=== PATIENT | male | born 1950 | race Caucasian/White ===

== ENCOUNTER 2025-03-29 07:42 | Emergency (ER) | payer MEDICARE, SELFPAY ==
[2025-03-29] VITALS (7 sets, daily range): BP systolic 112–141; BP diastolic 62–74; PULSE 77–91; RESP 17–18; TEMP 36.6–36.9; O2SAT 94; BMI 24.2; BMI 24.8
--- NOTE | ~2025-03-29 | CT_ITS ---
EXAMINATION: CT HEAD WITHOUT CONTRAST CLINICAL INFORMATION: Dizziness, gait changes. COMPARISON: None available. TECHNIQUE: Contiguous axial imaging was performed from the skull base to vertex without intravenous administration of contrast. This CT examination was performed using dose optimization techniques as appropriate, variously including the following: *Automated exposure control *Adjustment of mA and/or kV according to patient size (this includes techniques or standardized protocols for targeted exams where dose is matched to indication/reason for exam; i.e. extremities or head) *Use of iterative reconstruction technique FINDINGS: There is no evidence of intracranial hemorrhage or extra-axial fluid collection. There is no mass effect, or edema. No CT evidence of acute territorial infarct. Ventricles, sulci, and cisterns are normal in size and configuration for patient age. No hydrocephalus. No midline shift. Negative hyperdense MCA sign. Negative insular ribbon sign. Patchy periventricular and deep white matter hypoattenuation is consistent with mild small vessel ischemic changes. 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 Normal pituitary. Mild atheromatous calcification of the bilateral carotid siphons and V4 segments vertebral arteries bilaterally. Globes and orbital contents image normally. No extracranial soft tissue abnormalities. The paranasal sinuses, mastoid air cells, and tympanic cavities are normally aerated. No suspicious bony abnormalities. There are no acute fractures evident. CT/CT head/brain wo IV con IMPRESSION: No acute intracranial abnormality. Electronically signed by: Ishan Young MD 03/29/2025 09:25 AM EDT
--- NOTE | 2025-03-29 08:06 | ECG_ITS ---
Test Reason : dizziness Blood Pressure : */* mmHG Vent. Rate : 81 BPM Atrial Rate : 81 BPM P-R Int : 168 ms QRS Dur : 80 ms QT Int : 380 ms P-R-T Axes : 71 -6 60 degrees QTcB Int : 441 ms Normal sinus rhythm Normal ECG No previous ECGs available Referred By: Reba Aguiar Electronically Signed By: JOSE REYES MD
--- OUTSIDE RECORDS SUMMARY | 2025-03-29 08:15 | XMS_ITS ---
Author Organization [facility] Address [address] [place] [address] Care Team Providers Care Computer Art Instructor Name Role Phone Zenaida TA, Jesús Huerta Primary Care Provider Unav ailable Joellen, Semaj Unavailable [phone] Allergies No Known Allergies REASON FOR VISIT At Risk Footcare, Painful Nail(s) aggrevated by shoes and causing difficulty standing/walking., Skin problem(s) Medications Medication SIG (Take, Route, Frequency, Duration) Notes Start Date End Date Status Simvastatin Active Baby Aspirin Active Lisinopril 10 MG Oral for 90 A ctive PIB-QVUI-Nzvp-Ca Gluc Not-Taking Metoprolol Succinate ER 100 MG Oral for 90 Active Ammonium Lactate 12 % 1 application Exte rnally to affected areas of skin to feet except for between the toes Twice a day for 30 days Active Social History Tobacco Use: Social History Observation Description Date Details (start date - stop date) Never Smoker NA - NA Tobacco Use/Smoking Question Answer Notes Are you a: nonsmoker Alcohol Screen Question Answer Notes Did you have a drink contain ing alcohol in the past year? Yes How often did you have a dri nk containing alcohol in the past year? 4 or more times a week (4 points) How many drinks did you have on a typical day when you were drinking in the past year? 1 or 2 drinks (0 point) Points 4 Interpretation Positive Tobacco use other than smoking: Question Answer Notes Are you an other tobacco user? No Problems Problem Type SNOMED Code ICD Code Onset Dates Problem Status W/U Status Risk Notes Problem Atherosclerosis of upper sioux arteries of the extremities (097211270875718) Atherosclerosis of upper sioux artery of both lower extremities, with unspecified presence of clinical manifestation (I70.203) Active confirmed Vital Signs Height 5 ft 8 in in 09/06/2024 Weight 164 lbs 09/06/2024 BMI 24.93 kg/m2 09/06/2024 Blood pressure systolic 120 mm Hg 09/06/20 Blood pressure diastolic 80 mm Hg 024 Procedures Procedure Date Ordered Date Performed Result Body Sit e 22303-PGAYJIX NAIL, 6 OR MORE 09/06/2024 N/A 29101-IHKO SKIN LESIONS, OVER 4 09/06/2024 N/A Encounters Encounter Location Date Provider Diagnosis [facility] [place] [address] [place] [address] 09/06/2024 Semaj Cuenca Atherosclerosis of upper sioux artery of both lower extremities, with unspecified presence of clinical manifestation I70.203 ; Tinea unguium B35.1 ; Pain in right toe(s) M79.674 ; Pain in left toe(s) M79.675 and Xerosis of skin L85.3 Assessments Encounter Date Diagnosis (ICD Code) Assessment Notes Treatment Notes Treatment Clinical Notes Section Notes 09/06/2024 Atherosclerosis of upper sioux artery of both lower extremities, with unspecified presence of clinical manifestation (ICD-10 - I70.203) 09/06/2024 Tinea unguium (ICD-10 - B35.1) 09/06/2024 Pain in right toe(s) (ICD-10 - M79.674) 09/06/2024 Pain in left toe(s) (ICD-10 - M79.675) 09/06/2024 Xerosis of skin (ICD-10 - L85.3) Plan Of Treatment Medication Medication Name Sig Start Date Stop Date Notes Ammonium Lactate 12 % 1 application Exte rnally to affected areas of skin to feet except for between the toes Twice a day for 30 days Pending Test Test Name Order Date 41863-YTKUUAZ NAIL, 6 OR MORE 09/06/2024 77920-NDCB SKIN LESIONS, OVER 4 09/06/20 24 Next Appt Details Follow Up: prn, Reason: Provider Name:Semaj Cuenca , 06/22/2025 09:00:00 AM, [address] [facility], [address], [place], [address], Procedure Notes * Category Sub-Category Detail Notes Debride Nail 6-10 Nail debridement Performance o f this nail treatment by a nonprofessional would put this patients foot and overall health at risk. Therefore, nail debridement was performed extensively to reduce/remove overall nail length, girth, thickness, subungual debris, and necrotic tissue, by manual and/or electrical means through the use of a nail nipper and/or dremel-type grinder set up operator gear tool, to a more viable healthy nail plate or bed tissue 6-10. Silver nitrate used for any petechial bleeding as necessary. Definitive antifungal treatment options have been reviewed and discussed with the patient. The patient chooses, no pharmaceutical tx - 98645 Keratoma Treatment Parring or Cutting o f Benign Hyperkeratotic Lesion(s) (-57) More than 4 Lesions - The Benign hyperkeratotic lesions, as described above were pared, and/or cut utilizing a sterile 15 blade, tissue nippers, and/or dremel - 69322 , Q8 Progress Notes * Vinod LINDSEYDOB:[birth year] (74 yo M)Acc No.[id number]:09/06/2024 Progress Note Patient:?ILIANAVinod SHINE Provider:?Semaj Cuenca DPM :1950???Age:74 Y???Sex:Male Tuan e:09/06/2024 Address:[address] [place] [address] Pcp:Jesús Estevez MD Subjective: * Chief Complaints: * ???At Risk FootcarePainful N ail(s) aggrevated by shoes and causing difficulty standing/walking.Skin problem(s) * HPI: ???At Risk footcare:?Pt States Last PCP Visit:?Date?05/21/2024 ???Skin problems:?Nature:?dryness , scaling.?Location:?B/L .?Duration:?several days.?Course:?worse.? * ROS:?General/Constitutional:?Nausea?denies.?Vomiting?denies.?Hunger Thirst?denies.?Loss appetite?denies.?Chills?denies.?Fatigue?denies.?Fever?denies.?Night Sweats?denies.?Unexplained weight loss?denies.?Unexplained weight gain?denies.?HEENTM:?Dentures?denies.?Dizziness?denies.?Glasses/contacts?admits.?Retinopathy?de nies.?Blurred/double vision?denies.?TMJ?denies.?Discharge/drainage?denies.?Implants?denies.?Sore throat?denies.?Dental implants?denies.?Hard of hearing ?denies.?Difficulty chewing/swallowing/speaking?denies.?Nose bleeds?denies.?Sore mouth?denies.?Respiratory:?On Oxygen?denies.?Pneumonia/pleurisy?denies.?Bronchitis?denies.?Emphysema?denies.?C oughing?denies.?Cough blood?denies.?Shortness of breath?denies.?Wheezing?denies.?Cardiovascular:?Pacemaker?denies.?MVP?denies.?WPW?denies.?CHF?denies.?Heart attack?denies.?Septal defect?denies.?Rapid beat?admits.?Chest pain ?denies.?Atrial Fib.?denies.?Murmur/Palpitations?denies.?Gastrointestinal:?Hemorrhoids?denies.?Stomach/Abdominal pain?denies.?Dark blood stool?denies.?Irritable bowel ?denies.?Constipation?denies.?Diarrhea?denies.?Hematology:?Swelling?denies.?Clots?denies.?Varicose Veins?admits.?Bruising?admits, on aspirin.?Bleeding problem?admits, on anticoagulants.?Genitourinary:?Blood urine?denies.?Frequent/Painfu/urination/bladder control?denies.?Kidney stones?denies.?Infection (UTI)?denies.?Nephropathy?denies.?sex trans dis (STD)?denies.?Prostate?denies.?Musculoskeletal:?Hammertoes?admits.?Bunions?denies.?Back Pain?denies.?Muscle Cramps/ Resting?denies.?Muscle cramps / walking?denies.?Generalized aches and pains?denies.?Weakness?denies.?Integ.:?Esquivel?denies.?Scars?denies.?Corns/calluses?admits.?Ingrown nails?admits.?Painful nails?admits.?Open Sores?denies.?Rashes?denies.?Neurologic:?Difficulty sleeping?denies.?Brain disorder?denies.?Numbness?denies.?Balance trouble?denies.?Confusion?denies.?Fainting/blackouts?denies.?Tingling?denies.?Tr emors?denies.?Rapid heart rate. * Medical History:? * Surgical History:?TURP (mills surethral resection of the prostate) * Hospitalization/Major Diagno stic Procedure:?Denies Past Hospitalization * Family History:?Mother: dece ased, diagnosed with Diabetic - NIDDM, Unspecified essential hypertension.? * Social History:?Tobacco Use:?Tobacco Use/Smoking?Are you a:?nonsmoker ?Tobacco use other than smoking?Are you an other tobacco user??No ???Drugs/Alcohol:?Drugs?Have you used drugs other than those for medical reasons in the past 12 months??No ?Alcohol Screen?Did you have a drink containing alcohol in the past year??Yes ?How often did you have a drink containing alcohol in the past year??4 or more times a week (4 points) ?How many drinks did you have on a typical day when you were drinking in the past year??1 or 2 drinks (0 point) ?Points?4 ?Interpretation?Positive ???Miscellaneous:?Caffeine: yes, 2-3 cups per day. ?Children: no. ?Exercise: yes, walking. ?Marital status: . ?Occupation: Retired. * Medications:?TakingBaby Aspi rin Simvastatin Lisinopril 10 MG Tablet Oral Metoprolol Succinate ER 100 MG Tablet Extended Release 24 Hour Oral Taking Baby Aspirin Taking Simvastatin Taking Lisinopril 10 MG Tablet Oral Taking Metoprolol Succinate ER 100 MG Tablet Extended Release 24 Hour Oral Not-Taking/PAISCI-UHIY-Iaee-Ca Gluc Medication List reviewed and reconciled with the patientNot-Taking/PRN LJJ-IHGT-Vsdo-Ca Gluc Medication List reviewed and reconciled with the patient * Allergies:?N.K.D.A.yes[Aller gies Verified] Objective: * Vitals:?Ht: 5 ft 8 in, Wt:16 4, BMI:24.93, Shoe size:8.5, BP:120/80mm Hg, BS:not taken. * Examination: ???Vascular: ?DP PULSES (B):? 1/4, B/L.?PT PULSES (B):? 0/4, B/L.?CAPILLARY FILL TIME:? delayed, all digits, B/L.?TROPHIC CONDITION-TEXTURE/ELASTICITY/TURGOR/HAIR GROWTH (B):? decreased, with sparse to absent hair growth, B/L.?TEMPERTURE GRADIENT (C):? decreased, cool to cool, proximal to distal, B/L.?PIGMENTATION:? rubrous, B/L.?EDEMA (C):?absent, B/L.?CLAUDICATION (C):?denies, B/L.?REST PAIN:?denies, B/L.?Nails: ?NAILS are:?Elongated, overgrown, dystrophic, lytic, greater than 3mm thick, discolored and friable with crumbly malodorous subungual debris, with pain on palpation, TA, T2, T3, T4, T5, T6, T7, T9.?Dermatologic: ?SKIN FINDINGS:? Skin exam reveals Keratotic lesion(s) located at, Medial plantar, IPJ, TA, Medial plantar, IPJ, T5, SUB MTH (s), 1, B/L , SUB MTH (s), 2, B/L , SUB MTH (s), 5,B/L, Heel(s), B/L , Skin shows sign(s) of, dryness, scaling, in a stocking fashion, no fissure(s) present, B/L.? Assessment: * Assessment: 1.?Tinea unguium - B35.1???2 .?Atherosclerosis of upper sioux artery of both lower extremities, with unspecified presence of clinical manifestation - I70.203???3.?Pain in right toe(s) - M79.674???4.?Pain in left toe(s) - M79.675?? 5.?Xerosis of skin - L85.3???Specify :Acute problem, Uncomplicated (3),Rx Management (4)??? Plan: * Treatment: 2.?Atherosclerosis of upper sioux artery of both lower extremities, with unspecified presence of clinical manifestation?Procedure: 50334-RELW SKIN LESIONS, OVER 4 3.?Xerosis of skin? Start Ammonium Lactate Cream, 12 %, 1 application, Externally to affected areas of skin to feet except for between the toes, Twice a day, 30 days, 140, Refills 2.?? * Procedures:?Debride Nail 6-10:?Nail debridement?Performance of this nail treatment by a nonprofessional would put this patients foot and overall health at risk. Therefore, nail debridement was performed extensively to reduce/remove overall nail length, girth, thickness, subungual debris, and necrotic tissue, by manual and/or electrical means through the use of a nail nipper and/or dremel-type grinder set up operator gear tool, to a more viable healthy nail plate or bed tissue 6-10. Silver nitrate used for any petechial bleeding as necessary. Definitive antifungal treatment options have been reviewed and discussed with the patient. The patient chooses, no pharmaceutical tx - 78052.?Keratoma Treatment:?Parring or Cutting of Benign Hyperkeratotic Lesion(s)?(-57) More than 4 Lesions - The Benign hyperkeratotic lesions, as described above were pared, and/or cut utilizing a sterile 15 blade, tissue nippers, and/or dremel - 03985 , Q8.? * Procedure Codes:?59122 DEBRI DE NAIL, 6 OR MORE, Modifiers: XS 77709 TRIM SKIN LESIONS, OVER 4, Modifiers: XS , Q8 * Preventive Medicine:? ??Counseling:?Discussion:?-13: Office or other outpatient visit for the evaluation and management of an established patient, which required a medically appropriate history and/or examination and LOW level of DECISION MAKING for: 1 STABLE ACUTE UNCOMPLICATED PROBLEM, 2 OR MORE MINOR PROBLEMS, OR 1 STABLE CHRONIC PROBLEM, THAT POSE(S) A LOW RISK FOR MORBIDITY/MORTALITY. The visit on the day of the encounter encompassed interpreting the data and educating the patient as to the nature of their condition, treatment options available according to their individual PMH, meds, allergies, and overall health/living conditions, as well as any potential risks or complications that may occur from a failure to adhere to, and participate in, the recommended course of therapy. The discussion included a complete verbal, and/or written explanation of the examination results, any x-rays taken, the proposed diagnosis, and outline of the treatment plan. A schedule for future care needs was also explained. The patient verbalized an understanding of the instructions at this time and agreed to be an active participant in their treatment. If the patient should think of any questions or concerns after the visit, I have encouraged the patient to call the office.?Xerosis:?The patient was counseled on the diagnosis, potential etiologies, and treatment options for their skin condition. We discussed the risks and benefits of each option from performing no treatment, to utilizing OTC topical skin creams/ointments, to utilizing prescription topical creams/ointments, to utilizing customized compounded topical medications and use of nocturnal occlusion with any/all previously detailed therapies. We discussed the advantages and disadvantages of each possible treatment and importance for adherence to all the recommended therapies for optimum success and avoid potential complications such as open sore/infection/possible hospitalization. We discussed the potential effectiveness of each topical preparation as well as each ones possible side effects and/or patient medication interactions. Patient questions re: use, dosage, successful outcomes, and application consistency were reviewed and the patient verbalized that all answers were clearly understood. The patient has decided to apply Rx skin creams to their feet save the interspaces while paying special attention to the heels. Such was sent to their pharmacy at the time of visit.? ??Screening/Special Tests:?Fall Risk?Screening:?No falls in the past year ?FALLS: Screening for Future Fall Risk?Have you had any falls with injury in the past year??No * Follow Up:?prn * Images: * Sign off status: Completed true * Provider:?Semaj Cuenca DPM Date:?2023 Generated for Julienne soto/Veronica/Sidney on:?03/29/2025 08:15 AM EDT History and Physical Notes * HPI (History of Present Illness) Category Sub-Category Detail Notes Category Not es Skin problems Nature: dryness , scaling Location: B/L Duration: several days Course: worse At Risk footcare Pt States Last PCP Visit: Date: 4 Examination Category Sub-Category Detail Notes Category Not es Dermatologic SKIN FINDINGS: Skin exam reveal s Keratotic lesion(s) located at, Medial plantar, IPJ, TA, Medial plantar, IPJ, T5, SUB MTH (s), 1, B/L , SUB MTH (s), 2, B/L , SUB MTH (s), 5,B/L, Heel(s), B/L , Skin shows sign(s) of, dryness, scaling, in a stocking fashion, no fissure(s) present, B/L Vascular DP PULSES (B): 1/4, B/L PT PULSES (B): 0/4, B/L CAPILLARY FILL TIME: delayed, all digits , B/L TEMPERTURE GRADIENT (C): decreased, cool to cool, proximal to distal, B/L TROPHIC CONDITION-TEXTURE/ELASTICITY/TURGOR/HAIR GROWTH (B): decreased, with sparse to absent hair gr owth, B/L EDEMA (C): absent, B/L CLAUDICATION (C): denies, B/L REST PAIN: denies, B/L PIGMENTATION: rubrous, B/L Nails NAILS are: Elongated, overg rown, dystrophic, lytic, greater than 3mm thick, discolored and friable with crumbly malodorous subungual debris, with pain on palpation, TA, T2, T3, T4, T5, T6, T7, T9
--- OUTSIDE RECORDS SUMMARY | 2025-03-29 08:15 | XMS_ITS | Clinical Summary ---
Author Organization [address] Address [address] [place] [phone] Phone Care Team Providers Care Events And Promotions Assistant Name Role Phone Jesús Estevez MD Primary Care Provider [phone] Allergies No known active allergies Medications aspirin 81 mg EC tablet Take 1 tablet (81 mg total) by mouth 1 (one) time each day. OTC Active metoprolol succinate (TOPROL-XL) 50 mg 24 hr tabletIndicatio ns:Routine general medical examination at a health care facility,Hypote nsion due to drugs,Fall, initial encounter Take 1 tablet (50 mg total) by mouth 1 (one) time each day. Do not crush or chew. 30 each 5 03/21/20 25 025 Active simvastatin (ZOCOR) 20 mg tabletIndicatio ns:Routine general medical examination at a health care facility,Hypote nsion due to drugs Take 1 tablet (20 mg total) by mouth at bedtime. at bedtime 90 tablet 1 03/21/20 25 Active ammonium lactate (AMLACTIN) 12 % cream if needed for dry skin. 025 Discontinued(Th erapy completed) simvastatin (ZOCOR) 20 mg tablet TAKE ONE TABLET BY MOUTH DAILY AT BEDTIME 90 tablet 1 10/18/20 24 025 Discontinued(Re order) metoprolol succinate (TOPROL-XL) 100 mg 24 hr tablet TAKE ONE TABLET BY MOUTH EVERY DAY 90 tablet 1 10/18/20 24 025 Discontinued lisinopriL (PRINIVIL,ZESTR IL) 10 mg tablet Take 1 tablet (10 mg total) by mouth 1 (one) time each day. 90 tablet 02/15/20 25 025 Discontinued Active Problems Problem Noted Date Diagnosed Date Mixed hyperlipidemia 12/27/2021 Neurogenic bladder 11/03/2019 Prediabetes 02/01/2019 Assessment & Plan (03/21/2025 1:39 PM EDT): Orders: Hemoglobin A1c; Future Basic metabolic panel; Future Atrial fibrillation ([facility] V24, [facility] V28) 0 07/03/2018 Overview (08/24/2024): folows with Dr. Martel Benign prostatic hyperplasia 11/21/2017 Other pulmonary embolism wit hout acute cor pulmonale ([facility] V24, [facility] V28) 10/13/2017 Normocytic anemia 07/30/2017 Ventral hernia 08/26/2008 Macular degeneration (senile) of retina 08/11/20 06 Overview (08/24/2024): Followed by Dr. Nick Funes Obi update Essential hypertension, benign 01/15/2006 Pure hypercholesterolemia 01/15/2006 Encounters Date Type Department Care Team Description 03/28/2025 Telephone Adult Medicine [address] [phone] Jesús Estevez MD MyChart Message 03/28/2025 Nurse Triage Adult Medicine [address] [phone] Nay Pruitt NP 03/21/2025 10:30 AM EDT Office Visit Adult Medicine [address] [phone] Nay Pruitt NP Routine general medical examination at a health care facility (Primary Dx); Hypotension due to drugs; Fall, initial encounter; Hyperglycemia; Prediabetes; Encounter for screening for cardiovascular disorders; Encounter for screening for malignant neoplasm of prostate 01/10/2025 2:00 PM EST Office Visit [facility] [address] [phone] Giovanny Leigh MD Mixed hyperlipidemia (Primary Dx); Other pulmonary embolism without acute cor pulmonale, unspecified chronicity ([facility] V24, [facility] V28); Atrial fibrillation, unspecified type ([facility] V24, [facility] V28) from Last 3 Months Immunizations Name Administration Dates Next Due H1N1 Inj Preservative Free 12/05/2009 Influenza trivalent, 0.5mL ( Fluzone High-dose) 65yo and older 08/16/2021,09/04/2020,08/04/2019,09/09,07/22/2017,08/03/2015 Influenza trivalent, with pr eservative (Fluzone; Afluria) 6mo and older 10/20/2014,10/19/2013,10/12/2012,09/13,09/10/2010,08/26/2008,08/29/2007 ,10/12/2006 Influenza, Unspecified 09/18/2016 Pneumococcal conjugate 13 va lent (Prevnar 13, PCV13) 2mo and older 09/17/2017 Pneumococcal conjugate 20 va lent (Prevnar 20, PCV 20) 2mo and older 12/26/2022 Pneumococcal polysaccharide 23 valent (Pneumovax 23) 2yo and older 09/10/2010 Td Tetanus diptheria (Tdvax) 7yo and older 08/11/2006 Tdap Tetanus diptheria acell ular pertussis (Boostrix; Adacel) 7yo and older 12/26/2022,10/12/2012 Surgical History Surgery Date Site/Laterality Comments COLONOSCOPY 12/30/2002 PROCEDURE: HISTORICAL COLONOSCOPY; COMMENT: normal COLONOSCOPY 03/16/2015 PROCEDURE: HISTORICAL COLONOSCOPY; COMMENT: normal Medical History Medical History Date Comments Essential hypertension, benign 01/15/2006 D X:Essential hypertension, benign Pure hypercholesterolemia 01/15/2006 DX:Pur e hypercholesterolemia Macular degeneration (senile ) of retina, unspecified 08/11/2006 DX:Macular degeneration (sen ile) of retina, unspecified; COMMENT: Followed by Dr. Nick Funes Historical Medical DX 08/26/2008 DX:Ventral hernia Hyperglycemia 09/10/2010 DX:Hyperglycemia Family History Medical History Relation Name Comments Other cancer Maternal Grandfather specifi cs not known Diabetes Mother borderline Relation Name Status Comments Maternal Grandfather Mother Social History Tobacco Use Types Packs/Day Years Used Date Smoking Tobacco: Never Smokeless Tobacco: Never Tobacco Cessation:Counseling Given: Not Answered Alcohol Use Standard Drinks/Week Comments Yes 0 (1 standard drink = 0.6 oz pur e alcohol) Housing Instability Answer Date Recorde d Are you worried that in the next 2 months you may not have stable housing? No 03/16/2025 Food Access & Nutrition Answer Date Rec orded Do you have access to a vari ety of food including fruits and vegetables? Yes 03/16/2025 Access to Healthcare Answer Date Record ed Within the last 3 months, ho w many times did you visit the emergency department for your medical care? 0 03/16/2025 Health Literacy Answer Date Recorded How often do you need to hav e someone help you when you read instructions, pamphlets, or other written material from your doctor or pharmacy? Always 03/16/2025 Caregiver: How often do you need to have someone help you when you read instructions, pamphlets, or other written material from your doctor or pharmacy? Not on file 03/16/2025 Financial Risk Answer Date Recorded How hard is it for you to pa y for the very basics like food, housing, medical care, and air conditioning / heating? Not very hard 03/16/2025 Transportation Answer Date Recorded Has the lack of transportati on kept you from meetings, work, or from getting things needed for daily living? No Has the lack of transportati on kept you from medical appointments or from getting medications? No 03/16/2025 Social Isolation Answer Date Recorded How often do you feel lonely or isolated from those around you? Sometimes 03/16/2025 Food Risk Answer Date Recorded Within the past 12 months we worried whether our food would run out before we got money to buy more. Never true 03/16/2025 Within the past 12 months th e food we bought just didn't last and we didn't have money to get more. Never true 03/16/2025 Dependent Care Answer Date Recorded Do you need help finding or paying for care for your loved ones. For example, child development teacher or elderly care for an older adult? No 03/16/2025 Education Answer Date Recorded Do you think completing more education or training, like finishing a GED, going to college, or learning a trade, would be helpful for you? No 03/16/2025 Employment and Income Answer Date Recor ded During the last four weeks, have you been actively looking for work? No 03/16/2025 Living Situation Answer Date Recorded What is your living situation? 0 03/16/2025 Sex and Gender Information Value Date Recorded Sex Assigned at Not on file Legal Sex Male 11:24 PM EST Gender Identity Not on file Sexual Orientation Not on file Obstetrics History Last Filed Vital Signs Vital Sign Reading Time Taken Comments Blood Pressure 87/52 03/21/2025 10:44 AM EDT Pulse 76 03/21/2025 10:44 AM EDT Temperature 36.1 ??C (96.9 ??F) 03/21/2025 10:44 AM E DT Respiratory Rate 16 03/21/2025 10:44 AM EDT Oxygen Saturation 95% 03/21/2025 10:44 AM EDT Inhaled Oxygen Concentration - - Weight 72.7 kg (160 lb 3.2 oz) 03/21/2025 10:44 AM EDT Height 175.3 cm (5' 9 ) 03/21/2025 10:44 AM EDT Body Mass Index 23.66 03/21/2025 10:44 AM EDT Plan of Treatment Upcoming Encounters Date Type Department Care Team (Late st Contact Info) Description 04/21/2025 8:00 AM EDT Office Visit Adult Medicine [facility] [address] [place] [address], [place] [phone] Nay Pruitt, REFRIGERATOR ROOM CLERK [address] [place] [address], [place] Health Maintenance Due Date Last Done Comments Zoster Vaccines (2 of 2) 03/11/2022 01/14/2022 COVID-19 Vaccine ( season) 2025 08/10/2024, 08/12/2023, 09/17/2022, Additional history exists Depression Screening 03/16/2026 03/16/2025 Social Influencers of Health Screening 03/16/2026 03/16/2025 Falls Risk Assessment 03/21/2026 03/21/2025 Medicare Annual Wellness Visit 03/21/2026 03/21/2025 Hypertension/CHF/CAD Annual BMP Blood Test 03/24/2026 03/24/2025, 03/09/2024 Cholesterol Screening (Lipid Panel) 03/24/2030 03/24/2025, 03/09/2024 DTaP,Tdap,and Td Vaccines (5 - Td or Tdap) 12/26/2032 12/26/2022, 12/29/2021, 10/12/2012, Additional history exists Hepatitis C Screening Completed 10/15/2014 Colorectal Cancer Screening: Colonoscopy Discontinued 03/16/2015 Pneumococcal Vaccine: 50+ Years Completed 12/26/2022, 09/17/2017, 09/10/2010 Influenza Vaccine Completed 08/10/2024, , 09/10/2022, Additional history exists RSV Immunization Adult Patients Completed 08/17/2024 HIB Vaccines Aged Out No longer eligi ble based on patient's age to complete this topic HPV Vaccines Aged Out No longer eligi ble based on patient's age to complete this topic Hepatitis A Vaccines Aged Out No long er eligible based on patient's age to complete this topic Hepatitis B Vaccines Aged Out No long er eligible based on patient's age to complete this topic IPV Vaccines Aged Out No longer eligi ble based on patient's age to complete this topic MMR Vaccines Aged Out No longer eligi ble based on patient's age to complete this topic Meningococcal ACWY Vaccine Aged Out N o longer eligible based on patient's age to complete this topic Meningococcal B Vaccine Aged Out No l onger eligible based on patient's age to complete this topic RSV Immunization Patients Under 20 months Aged Out No longer eligible based on patient's age to complete this topic Varicella Vaccines Aged Out No longer eligible based on patient's age to complete this topic Procedures Procedure Name Priority Date/Time Associated Diagnosis Comments HEMOGLOBIN A1C Routine 03/24/2025 8:11 AM EDT Routine general medical examination at a health care facility Hypotension due to drugs Fall, initial encounter Hyperglycemia Prediabetes BASIC METABOLIC PANEL Routine 03/24/2025 8:11 AM EDT Routine general medical examination at a health care facility Hypotension due to drugs Fall, initial encounter Hyperglycemia Prediabetes LIPID PANEL WITH REFLEX TO DIRECT LDL Routine 03/24/2025 8:11 AM EDT Routine general medical examination at a health care facility Hypotension due to drugs Encounter for screening for cardiovascular disorders PROSTATE SPECIFIC ANTIGEN SCREEN Routine 03/24/2025 8:11 AM EDT Routine general medical examination at a health care facility Hypotension due to drugs Encounter for screening for malignant neoplasm of prostate ECG 12-LEAD Routine 01/10/2025 2:00 PM EST Mixed hyperlipidemia HM COLONOSCOPY Routine 03/16/2015 HEPATITIS C SCREENING Routine 10/15/2014 from Last 3 Months or Most Recently Relevant to Health Maintenance Results * Prostate specific antigen screen (03/24/2025 8:11 AM EDT) PSA 3.40 0.00 - 4.00 ng/mL LAB CHEMISTRY METHOD 03/24/2025 11:37 AM EDT [facility] Blood Venous blood specimen / Unknown Venipuncture / Unknown 03/24/2025 8:11 AM EDT 03/24/2025 8:11 AM EDT Narrative [facility] - 03/24/2025 11:37 AM EDT The Siemens Advia Centaur Chemiluminescent Immunoassay is used. Results obtained with different assay methods or kits cannot be used interchangeably. Results cannot be interpreted as absolute evidence of the presence or absence of malignant disease. us Nay Pruitt REFRIGERATOR ROOM CLERK LAB BLOOD ORDERABLES Final R esult [facility] [address] [place] [address], * Lipid panel with reflex to direct LDL (03/24/2025 8:11 AM EDT) Cholesterol 151 0 - 200 mg/dL LAB CHEMISTRY METHOD 03/24/2025 11:12 AM EDT [facility] Triglycerides 110 0 - 150 mg/dL LAB CHEMISTRY METHOD 03/24/2025 11:12 AM EDT [facility] HDL 53 >=40 mg/dL LAB CHEMISTRY METHOD 03/24/2025 11:12 AM EDT [facility] LDL Calculated 76 0 - 100 mg/dL LAB CHEMISTRY METHOD 03/24/2025 11:12 AM EDT [facility] VLDL Cholesterol Thang 22 mg/dL LAB CHEMISTRY METHOD 03/24/2025 11:12 AM EDT [facility] Non HDL Chol. (LDL+VLDL) 98 <145 mg/dL LAB CHEMISTRY METHOD 03/24/2025 11:12 AM EDT [facility] Chol/HDL Ratio 2.8 0.0 - 4.4 LAB CHEMISTRY METHOD 03/24/2025 11:12 AM EDT [facility] Blood Venous blood specimen / Unknown Venipuncture / Unknown 03/24/2025 8:11 AM EDT 03/24/2025 8:11 AM EDT Nay Pruitt REFRIGERATOR ROOM CLERK LAB BLOOD ORDERABLES Final R esult [facility] [address] [place] [address], * Hemoglobin A1c (03/24/2025 8:11 AM EDT) Hemoglobin A1C 5.6 <6.5 % LAB CHEMISTRY METHOD 03/24/2025 1:54 PM EDT [facility] Mean Bld Glu Estim. 114 mg/dL LAB CHEMISTRY METHOD 03/24/2025 1:54 PM EDT [facility] Blood Venous blood specimen / Unknown Venipuncture / Unknown 03/24/2025 8:11 AM EDT 03/24/2025 8:11 AM EDT Nay Pruitt NP LAB BLOOD ORDERABLES Final R esult [facility] [address] [place] [address], * (ABNORMAL) Basic metabolic panel (03/24/2025 8:11 AM EDT) Sodium 133 133 - 145 mmol/L LAB CHEMISTRY METHOD 03/24/2025 11:10 AM [facility] Potassium 4.4 3.5 - 5.5 mmol/L LAB CHEMISTRY METHOD 03/24/2025 11:10 AM [facility] Chloride 101 96 - 110 mmol/L LAB CHEMISTRY METHOD 03/24/2025 11:10 AM [facility] CO2 27 21 - 32 mmol/L LAB CHEMISTRY METHOD 03/24/2025 11:10 AM [facility] Anion Gap 5 3 - 11 LAB CHEMISTRY METHOD 03/24/2025 11:10 AM [facility] Glucose 124(H) 70 - 100 mg/dL LAB CHEMISTRY METHOD 03/24/2025 11:10 AM [facility] BUN 15 5 - 25 mg/dL LAB CHEMISTRY METHOD 03/24/2025 11:10 AM [facility] Creatinine 1.05 0.70 - 1.30 mg/dL LAB CHEMISTRY METHOD 03/24/2025 11:10 AM [facility] eGFR 75 >=60 mL/min/1. 73m2 LAB CHEMISTRY METHOD 03/24/2025 11:10 AM [facility] Comment:Calculation based on the Chronic Kidney Disease Epidemiology Collaboration (CKD-EPI) equation refit without adjustment for race. BUN/Creatinine Ratio 14.3 LAB CHEMISTRY METHOD 03/24/2025 11:10 AM [facility] Calcium 9.4 8.5 - 10.5 mg/dL LAB CHEMISTRY METHOD 03/24/2025 11:10 AM EDT [facility] Blood Venous blood specimen / Unknown Venipuncture / Unknown 03/24/2025 8:11 AM EDT 03/24/2025 8:11 AM EDT Nay Pruitt REFRIGERATOR ROOM CLERK LAB BLOOD ORDERABLES Final R esult Performing Organization Address City/[facility]/ZIP Co de Phone Number [facility]) [facility] [address] [place] [address], * ECG 12 lead (01/10/2025 2:00 PM EST) Pathologist [facility] Ventricular Rate ECG 61 BPM GEMUSE Atrial Rate 61 BPM GEMUSE P-R Interval 200 ms GEMUSE QRS Duration 92 ms GEMUSE Q-T Interval 410 ms GEMUSE QTc 412 ms GEMUSE P Wave [place] 73 degrees GEMUSE R [place] 71 degrees GEMUSE T [place] 73 degrees GEMUSE ECG Interpretation Normal sinus rhythm Normal ECG When compared with ECG of 08-JAN-2018 11:07, No significant change was found Confirmed by Dilcia LEIGH JAY ([id number]) on 01/10/2025 2:22:16 PM GEMUSE 01/10/2025 2:00 PM EST 01/10/2025 2:22 PM EST Giovanny Leigh MD ECG ORDERABLES Final Result Performing Organization Address [facility] Co de Phone Number GEMUSE * Colonoscopy (03/16/2015) Colonoscopy No interpretation , abstracted Anatomical Region Laterality Modality Other Historical Provider HEALTH MAINTENANCE Final Result * Hepatitis C Screening (10/15/2014) Pathologist [facility] Hepatitis C Screening Abstracted Historical Provider HEALTH MAINTENANCE Final Result from Last 3 Months or Most Recently Relevant to Health Maintenance Insurance [employer] [place] [employer] Care Teams Events And Promotions Assistant Relationship Specialty Start Date End Date Jesús Estevez MD [address] [place] [address] PCP - General 01/05/04
--- OUTSIDE RECORDS SUMMARY | 2025-03-29 08:15 | XMS_ITS | Encounter Summary ---
Author Organization [facility] Address [address] [place] [address] Care Team Providers Care Engine Specialist Name Role Phone Jesús Estevez MD Primary Care Provider [phone] Encounter Details Date Type Department Care Team (Late st Contact Info) Description 03/28/2025 Nurse Triage Adult Medicine [facility] [address], [place] [phone] Nay Pruitt, CHEMICAL STRENGTH TESTER [address], [place] Social History Tobacco Use Types Packs/Day Years Used Date Smoking Tobacco: Never Smokeless Tobacco: Never Alcohol Use Standard Drinks/Week Comments Yes 0 [...] care for your loved ones. For example, children's tutor nursery or elderly care for an older adult? [...] on file Sexual Orientation Not on file documented as of this encounter Progress Notes * Cr Ty RN - 03/28/2025 12:05 PM EDT Please see other encounter documented in this encounter Plan of Treatment Upcoming Encounters Date Type Department Care Team (Late st Contact Info) Description 04/21/2025 8:00 AM EDT Office Visit Adult Medicine [facility] [address] [place] [phone] Nay Pruitt NP [address] [place] [phone] documented as of this encounter Visit Diagnoses Not on filedocumented in this encounter Additional Health Concerns Assessment Noted Time PHQ-9 Depression Total Score: 0 03/16/20 25 1:14 PM EDT documented as of this encounter Care Teams Engine Specialist Relationship Specialty Start Date End Date Jesús Estevez MD [address] [place] [address] PCP - General 01/05/04 documented as of this encounter
--- OUTSIDE RECORDS SUMMARY | 2025-03-29 08:15 | XMS_ITS ---
Author Organization [facility] Rosana gasper Nogueira Address [address] [place] [address] Care Team Providers Care Orthodontist Assistant Name Role Phone Zenaida TA, Henrrync Bradley Primary Care Provider Unav ailable Semaj Cuenca Unavailable [phone] Allergies No Known Allergies REASON FOR VISIT At Risk Footcare, Painful Nail(s) aggrevated by shoes and causing difficulty standing/walking. Medications Medication SIG (Take, Route, Frequency, Duration) Notes Start Date End Date Status GNI-KAQB-Monu-Ca Gluc Not-Taking Ammonium Lactate 12 % 1 application Exte rnally to affected areas of skin to feet except for between the toes Twice a day for 30 days Active Metoprolol Succinate ER 100 MG Oral for 90 Active Simvastatin Active Baby Aspirin Active Lisinopril 10 MG Oral for 90 A ctive Social History Tobacco Use: Social History Observation Description Date Details (start date - stop date) Never Smoker NA - NA Alcohol Screen Question Answer Notes Did you [...] Are you an other tobacco user? No Tobacco Control (Standard) Question Answer Notes Tobacco use: Nonsmoker Additional Findings: Tobacco non-user Current no nsmoker Vital Signs Height 5ft 8in in 03/09/2025 Weight 165 lbs 03/09/2025 BMI 25.09 kg/m2 03/09/2025 Blood pressure systolic 132 mm Hg 03/09/20 25 Blood pressure diastolic 66 mm Hg 025 Procedures Procedure Date Ordered Date Performed Result Body Sit e 62411-HJDGJJH NAIL, 6 OR MORE 03/09/2025 N/A 49392-AVIN SKIN LESIONS, OVER 4 03/09/2025 N/A Encounters Encounter Location Date Provider Diagnosis [facility] [place] [address] [place] [id number] 03/09/2025 Semaj Cuenca Atherosclerosis of levelock artery of both lower extremities, with unspecified presence of clinical manifestation I70.203 ; Tinea unguium B35.1 ; Pain in right toe(s) M79.674 and Pain in left toe(s) M79.675 Assessments Encounter Date Diagnosis (ICD Code) Assessment Notes Treatment Notes Treatment Clinical Notes Section Notes 03/09/2025 Atherosclerosis of levelock artery of both lower extremities, with unspecified presence of clinical manifestation (ICD-10 - I70.203) 03/09/2025 Tinea unguium (ICD-10 - B35.1) 03/09/2025 Pain in right toe(s) (ICD-10 - M79.674) 03/09/2025 Pain in left toe(s) (ICD-10 - M79.675) Plan Of Treatment Pending Test Test Name Order Date 00856-SQWCNWU NAIL, 6 OR MORE 03/09/2025 30560-NMHQ SKIN LESIONS, OVER 03/09/20 25 Next Appt Details Follow Up: prn, Reason: Provider Name:Semaj Cuenca , 06/22/2025 09:00:00 AM, [address] [facility], [address] [facility], [place], [address], Procedure Notes * Category Sub-Category Detail Notes Debride Nail 6-10 Nail debridement Due to the cl inical pathology outlined in the exam findings, performance of this nail treatment is medically necessary as its management by an unskilled/untrained nonprofessional would put this patients foot and overall health at risk. Therefore, debridement to affected nail(s), as described in exam ( TA, T2, T3, T4, T5, T6, T7, T9 ), was performed exclusively by the physician of record to reduce/remove overall nail length, girth, thickness, subungual debris, and necrotic tissue, by manual and/or electrical means through the use of a nail nipper and/or dremel-type jewel grinder, to a more viable healthy nail plate or bed tissue 6-10 nails in total. Silver nitrate was used for any petechial bleeding as necessary. Definitive antifungal treatment options, both pharmaceutical and surgical, have been reviewed and discussed with the patient. The patient solely prefers the use of intermittent/as needed professional debridement services for their nail condition and understands the need for additional periodic treatments to maintain effectiveness in symptomatic relief - 98476 Keratoma Treatment Parring or Cutting o f Benign Hyperkeratotic Lesion(s) (-57) More than 4 Lesions - Due to the at risk nature of the patients medical condition as documented in the exam findings, performance of this keratoderma treatment is medically necessary as its management by an unskilled/untrained nonprofessional would put this patients foot and overall health at risk. Therefore, the benign hyperkeratotic lesions, (10) in total, locations as stated and described in the exam ( Medial plantar, IPJ, TA, Medial plantar, IPJ, T5, SUB MTH (s), 1, B/L , SUB MTH (s), 2, B/L , SUB MTH (s), 5,B/L, Plantar, Heel(s), B/L ), were pared, and/or cut utilizing a sterile 15 blade, tissue nippers, and/or power dremel instrumentation by the physician of record - 75966, Q8 Progress Notes * Vinod LINDSEYDOB:[birth year] (75 yo M)Acc No.[id number]:03/09/2025 Progress Note Patient:Vinod GARCIA Provider:?Semaj Cuenca DPM :1950???Age:75 Y???Sex:Male Tuan e:03/09/2025 Address:[address] [place], [place] [id number] Pcp:Jesús Estevez MD Subjective: * Chief Complaints: * ???At Risk FootcarePainful N ail(s) aggrevated by shoes and causing difficulty standing/walking. * HPI: ???At Risk footcare:?Pt States Last PCP Visit:?Date?09/22/2024 States has an appt with PCP soon - 03/21 * ROS:?General/Constitutional:?Nausea?denies.?Vomiting?denies.?Hunger Thirst?denies.?Loss appetite?denies.?Chills?denies.?Fatigue?denies.?Fever?denies.?Night Sweats?denies.?Unexplained weight loss?denies.?Unexplained [...] of the prostate) * Hospitalization/Major Diagno stic Procedure:?No Hospitalization History. * Family History:?Mother: dece ased, diagnosed with Diabetic - NIDDM, Unspecified essential hypertension.? * Social History:?Tobacco Use:?Tobacco use other than smoking?Are you an other tobacco user??No ?Tobacco Control (Standard)?Tobacco use:?Nonsmoker ?Additional Findings: Tobacco non-user?Current nonsmoker ???Drugs/Alcohol:?Drugs?Have you used drugs other than those [...] MG Tablet Extended Release 24 Hour Oral Ammonium Lactate 12 % Cream 1 application Externally to affected areas of skin to feet except for between the toes Twice a day Taking Baby Aspirin Taking Simvastatin Taking Lisinopril 10 MG Tablet Oral Taking Metoprolol Succinate ER 100 MG Tablet Extended Release 24 Hour Oral Taking Ammonium Lactate 12 % Cream 1 application Externally to affected areas of skin to feet except for between the toes Twice a day Not-Taking/HWXUDY-EBZF-Wpxm-Ca Gluc Medication List reviewed and reconciled with the patientNot-Taking/PRN VNT-YGFC-Rcet-Ca Gluc Medication List reviewed and reconciled with the patient * Allergies:?N.K.D.A.yes[Aller gies Verified] Objective: * Vitals:?Ht: 5ft 8in, Wt:165, BMI:25.09, Shoe size: 8.5, BP:132/66mm Hg, Ht-cm: 172.72 cm, Wt-k.84 kg. * Examination: ???Vascular: ?DP PULSES (B):? 11/20, B/L.?PT PULSES (B):? 0/4, B/L.?CAPILLARY FILL TIME:? [...] TA, T2, T3, T4, T5, T6, T7, T9, all other nails not described with characteristics as possessing mycosis are elongated, overgrown, and dystrophic.?Dermatologic: ?SKIN FINDINGS:? Skin exam reveals Keratotic lesion(s) located at, Medial plantar, IPJ, TA, Medial plantar, IPJ, T5, SUB MTH (s), 1, B/L , SUB MTH (s), 2, B/L , SUB MTH (s), 5,B/L,?Plantar, Heel(s), B/L.? Assessment: * Assessment: 1.?Tinea unguium - B35.1???2 .?Atherosclerosis of levelock artery of both lower extremities, with unspecified presence of clinical manifestation - I70.203 (Primary)???Specify :Q8???3.?Pain in right toe(s) - M79.674???4.?Pain in left toe(s) - M79.675??? Plan: * Treatment: 2.?Tinea unguium?Procedure: 28401-XGEJTPP NAIL, 6 OR MORE * Procedures:?Debride Nail 6-10:?Nail debridement?Due to the clinical pathology outlined in the exam findings, performance of this nail treatment is medically necessary as its management by an unskilled/untrained nonprofessional would put this patients foot and overall health at risk. Therefore, debridement to affected nail(s), as described in exam (?TA,?T2,?T3,?T4,?T5,?T6,?T7,?T9?), was performed exclusively by the physician of record to reduce/remove overall nail length, girth, thickness, subungual debris, and necrotic tissue, by manual and/or electrical means through the use of a nail nipper and/or dremel-type jewel grinder, to a more viable healthy nail plate or bed tissue 6- 10 nails in total. Silver nitrate was used for any petechial bleeding as necessary. Definitive antifungal treatment options, both pharmaceutical and surgical, have been reviewed and discussed with the patient. The patient solely prefers the use of intermittent/as needed professional debridement services for their nail condition and understands the need for additional periodic treatments to maintain effectiveness in symptomatic relief - 12769.?Keratoma Treatment:?Parring or Cutting of Benign Hyperkeratotic Lesion(s)?(-57) More than 4 Lesions - Due to the at risk nature of the patients medical condition as documented in the exam findings, performance of this keratoderma treatment is medically necessary as its management by an unskilled/untrained nonprofessional would put this patients foot and overall health at risk. Therefore, the benign hyperkeratotic lesions, (10) in total, locations as stated and described in the exam (?Medial plantar,?IPJ,?TA,?Medial plantar,?IPJ,?T5,?SUB MTH (s),?1,?B/L?,?SUB MTH (s),?2,?B/L?,?SUB MTH (s),?5,B/L,?Plantar,?Heel(s),?B/L?), were pared, and/or cut utilizing a sterile 15 blade, tissue nippers, and/or power dremel instrumentation by the physician of record - 31980, Q8.? * Procedure Codes:?28153 DEBRI DE NAIL, 6 OR MORE, Modifiers: XS 48937 TRIM SKIN LESIONS, OVER 4, Modifiers: XS , Q8 * Follow Up:?prn * Images: * Sign off status: Completed true * Provider:?Semaj Cuenca DPM Date:?2024 Generated for Julienne soto/Veronica/eTransmitting on:?03/29/2025 08:15 AM EDT History and Physical Notes * HPI (History of Present Illness) Category Sub-Category Detail Notes Category Not es At Risk footcare Pt States Last PCP Visit: Date: 09/22/2024 States has an appt with PCP soon - 03/21 Examination Category Sub-Category Detail Notes Category Not es Dermatologic SKIN FINDINGS: Skin exam reveal s Keratotic lesion(s) located at, Medial plantar, IPJ, TA, Medial plantar, IPJ, T5, SUB MTH (s), 1, B/L , SUB MTH (s), 2, B/L , SUB MTH (s), 5,B/L, Plantar, Heel(s), B/L Vascular DP PULSES (B): 1/4, B/L [...] TA, T2, T3, T4, T5, T6, T7, T9, all other nails not described with characteristics as possessing mycosis are elongated, overgrown, and dystrophic
--- OUTSIDE RECORDS SUMMARY | 2025-03-29 08:15 | XMS_ITS | Encounter Summary ---
Author Organization [facility] Address [address] [place] [address] Care Team Providers Care Director Day Care Center Name Role Phone Jesús Estevez MD Primary Care Provider Reason for Visit * Reason Onset Date Comments MyChart Message 03/28/2025 Encounter Details Date Type Department Care Team (Late st Contact Info) Description 03/28/2025 Telephone Adult Medicine [facility] [address] [place] [phone] Jesús Estevez MD [address] [place] [address] MyChart Message Social History Tobacco Use Types Packs/Day Years [...] for your loved ones. For example, child day care provider or elderly care for an older adult? [...] Notes * Cr Ty RN - 03/28/2025 12:00 PM EDT Called and spoke with keila. Pt has been having incontinence of urine and stool and balance off [facility] called her advised worse its ever been. Sts stool incontinence is new. Sts gait is deteriorating Advised needs to go to er for evaluation. Needs further work up we can do in offece requesting referral to neurology for work up sts needs to start with er for emergent clearance first * Dorota Lind - 03/28/2025 11:09 AM EDT Patient call requires triage: Symptoms patient is presenting: Patient's HCP is calling. She sent a [employer] message regarding the patient. He saw Margaux Pruitt last week. Caller states the patient is incontinent at times, balance is off, Patient denies this but she wants the patient to be seen tomorrow afternoon or Friday when she can bring him in. She feels neurologically something is not right. Please see the uStudio message, [place], her land line number is [phone] How long has patient had these symptoms?: recent For ALL patients calling to schedule any appointment (routine, sick visit, follow up, consult, etc.) in the outpatient setting please ask the following questions: Do you have fever of higher than 101, sore throat with difficulty swallowing or severe shortness ofbreath? no If YES to any of these above symptoms, send a message to triage and do not book. Red dot. If no, an audio or video visit should be booked. Have you had close contact with someone with Coronavirus in the last 14 days? no Have you traveled abroad? no Have you traveled recently to another state outside of [place], [place], [place], [place], [place], [place], [place]? no o If yes, did you quarantine for 14 days or have a negative covid test? no If yes to any of the above, patient is not to be scheduled in office until after 14 day quarantine or negative covid test. If pain or injury related was it due to an accident at work or from a motor vehicle accident? If yes, date of accident/Injury: No If yes, gather 3rd republican insurance information [employer] Party Information: not applicable PCP: Jesús Estevez MD Payor: [facility] [employer] MEDICARE ADVANTAGE / Plan: [employer] MEDICARE ADVANTAGE / Product Type: *No Product type* / documented in this encounter Plan of Treatment Upcoming Encounters Date Type Department Care Team (Late st Contact Info) Description 04/21/2025 8:00 AM EDT Office Visit Adult Medicine [address] [place], [place] [phone] Nay Pruitt NP [address], [place] documented as of this encounter Visit Diagnoses Not on filedocumented in this encounter Additional Health Concerns Assessment Noted Time PHQ-9 Depression Total Score: 0 03/16/20 25 1:14 PM EDT documented as of this encounter Care Teams Director Day Care Center Relationship Specialty Start Date End Date Jesús Estevez MD [address], [place] PCP - General 01/05/04 documented as of this encounter
--- OUTSIDE RECORDS SUMMARY | 2025-03-29 08:16 | XMS_ITS ---
Author Organization [facility] Rosana gasper [place] Address [address] [place] [address] Care Team Providers Care Equipment Sterilizer Name Role Phone Zenaida TA, Jesús Huerta Primary Care Provider Unav ailable JoellenSemaj Unavailable [phone] Allergies No Known Allergies REASON FOR VISIT At Risk Footcare, Painful Nail(s) aggrevated by shoes and causing difficulty standing/walking., Skin problem(s) Medications Medication SIG (Take, Route, Frequency, Duration) Notes Start Date End Date Status VKR-FAZT-Woqs-Ca Gluc Not-Taking Simvastatin Active Lisinopril 10 MG Oral for 90 A ctive Ammonium Lactate 12 % 1 application Exte rnally to affected areas of skin to feet except for between the toes Twice a day for 30 days Active Metoprolol Succinate ER 100 MG Oral for 90 Active Baby Aspirin Active Social History Tobacco Use: Social History [...] nsmoker Vital Signs Height 5ft 8in in 12/08/2024 Weight 165 lbs 12/08/2024 BMI 25.09 kg/m2 12/08/2024 Blood pressure systolic 129 mm Hg 12/08/19 25 Blood pressure diastolic 72 mm Hg 025 Procedures Procedure Date Ordered Date Performed Result Body Sit e 82098-AKUBTTS NAIL, 6 OR MORE 12/08/2024 N/A 56485-YOBJ SKIN LESIONS, OVER 4 12/08/2024 N/A Encounters Encounter Location Date Provider Diagnosis [facility] [place] [address] [place] [phone] 12/08/2024 Semaj Cuenca Atherosclerosis of bo[place] artery of both lower extremities, with unspecified presence of clinical manifestation I70.203 ; Tinea unguium B35.1 ; Pain in right toe(s) M79.674 ; Pain in left toe(s) M79.675 and Xerosis of skin L85.3 Assessments Encounter Date Diagnosis (ICD Code) Assessment Notes Treatment Notes Treatment Clinical Notes Section Notes 12/08/2024 Atherosclerosis of [place] artery of both lower extremities, with unspecified presence of clinical manifestation (ICD-10 - I70.203) 12/08/2024 Tinea unguium (ICD-10 - B35.1) 12/08/2024 Pain in right toe(s) (ICD-10 - M79.674) 12/08/2024 Pain in left toe(s) (ICD-10 - M79.675) 12/08/2024 Xerosis of skin (ICD-10 - L85.3) Plan Of Treatment Pending Test Test Name Order Date 88701-WUVXZNE NAIL, 6 OR MORE 12/08/2024 25872-BDQC SKIN LESIONS, OVER 4 12/08/19 25 Next Appt Details Follow Up: prn, Reason: Provider Name:Semaj Cuenca , 06/22/2025 09:00:00 AM, [address] [facility] [place] [address], [place], [address], Procedure Notes * Category Sub-Category Detail Notes [...] use of a nail nipper and/or dremel-type rubber roller grinder operator, to a more viable healthy nail plate [...] to maintain effectiveness in symptomatic relief - 19303 Keratoma Treatment Parring or Cutting o f Benign Hyperkeratotic Lesion(s) (-57) More than 4 Lesions - Due to the at risk nature of the patients medical condition as documented in the exam findings, performance of this keratoderma treatment is medically necessary as its management by an unskilled/untrained nonprofessional would put this patients foot and overall health at risk. Therefore, the benign hyperkeratotic lesions, ( 10 ) in total, locations as stated and described in the exam ( Medial plantar, IPJ, TA, Medial plantar, IPJ, T5, SUB MTH (s), 1, B/L , SUB MTH (s), 2, B/L , SUB MTH (s), 5,B/L, Plantar, Heel(s), B/L ), were pared, and/or cut utilizing a sterile 15 blade, tissue nippers, and/or power dremel instrumentation by the physician of record - 90228, Q8 Progress Notes * Vinod LIDNSEYDOB:[birth year] (74 yo M)Acc No.[id number]:12/08/2024 Progress Note Patient:?Jesus LINDSEYley Provider:?Semaj Cuenca DPM :1950???Age:74 Y???Sex:Male Tuan e:12/08/2024 Address:[address] [place] [address] Pcp:Jesús Estevez MD Subjective: * Chief Complaints: * ???At Risk FootcarePainful N ail(s) aggrevated by shoes and causing difficulty standing/walking.Skin problem(s) * HPI: ???At Risk footcare:?Pt States Last PCP Visit:?Date?09/22/2024 ???Skin problems:?Nature:?dryness , scaling.?Location:?B/L .?Treatments:?medication ( AM Lactin ), admits intermittent adherence to recommended application.? * ROS:?General/Constitutional:?Nausea?denies.?Vomiting?denies.?Hunger Thirst?denies.?Loss appetite?denies.?Chills?denies.?Fatigue?denies.?Fever?denies.?Night Sweats?denies.?Unexplained weight loss?denies.?Unexplained [...] for between the toes Twice a day Not-Taking/GETNFD-YWFV-Jvqs-Ca Gluc Medication List reviewed and reconciled with the patientNot-Taking/PRN UKJ-VFBB-Gvfl-Ca Gluc Medication List reviewed and reconciled with the patient * Allergies:?N.K.D.A.yes[Aller gies Verified] Objective: * Vitals:?Ht: 5ft 8in, Wt:165, BMI:25.09, Shoe size: 8.5, BP:129/72mm Hg, Ht-cm: 172.72 cm, Wt-k.84 kg. * Examination: ???Vascular: ?DP PULSES (B):? 1/4, [...] B/L , SUB MTH (s), 5,B/L,?Plantar, Heel(s), B/L , Skin?STILL, shows sign(s) of, dryness, scaling, in a stocking fashion, no fissure(s) present, B/L.? Assessment: * Assessment: 1.?Tinea unguium - B35.1???2 .?Atherosclerosis of bois [place]te artery of both lower extremities, with unspecified presence of clinical manifestation - I70.203 (Primary)???3.?Pain in right toe(s) - M79.674???4.?Pain in left toe(s) - M79.675 ??5.?Xerosis of skin - L85.3???Specify :Acute problem, Uncomplicated (3),Rx Management (4) Response to treatment - Unresolved Nonadherent to recommendations??? Plan: * Treatment: 2.?Tinea unguium?Procedure: 73089-WWSKENW NAIL, 6 OR MORE * Procedures:?Debride Nail [...] use of a nail nipper and/or dremel-type rubber roller grinder operator, to a more viable healthy nail plate [...] to maintain effectiveness in symptomatic relief - 17225.?Keratoma Treatment:?Parring or Cutting of Benign Hyperkeratotic Lesion(s)?(-57) More than 4 Lesions - Due to the at risk nature of the patients medical condition as documented in the exam findings, performance of this keratoderma treatment is medically necessary as its management by an unskilled/untrained nonprofessional would put this patients foot and overall health at risk. Therefore, the benign hyperkeratotic lesions, ( 10 ) in total, locations as stated and described in the exam (?Medial plantar,?IPJ,?TA,?Medial plantar,?IPJ,?T5,?SUB MTH (s),?1,?B/L?,?SUB MTH (s),?2,?B/L?,?SUB MTH (s),?5,B/L,?Plantar,?Heel(s),?B/L?), were pared, and/or cut utilizing a sterile 15 blade, tissue nippers, and/or power dremel instrumentation by the physician of record - 48761, Q8.? * Procedure Codes:?97836 DEBRI DE NAIL, 6 OR MORE, Modifiers: XS 90009 TRIM SKIN LESIONS, OVER 4, Modifiers: XS [...] patient to call the office.?Xerosis:?The patient was AGAIN, counseled on the diagnosis, potential etiologies, and [...] interspaces while paying special attention to the heels.? ??Screening/Special Tests:?Fall Risk?Screening:?No falls in the past year ?FALLS: Screening for Future Fall Risk?Have you had any falls with injury in the past year??No * Follow Up:?prn * Images: * Sign off status: Completed true * Provider:?Semaj Cuenca DPM Date:?2024 Generated for Julienne soto/Veronica/Sidney on:?03/29/2025 08:15 AM EDT History and Physical Notes * HPI (History of Present Illness) Category Sub-Category Detail Notes Category Not es Skin problems Nature: dryness , scaling Location: B/L Treatments: medication ( AM Lact in ), admits intermittent adherence to recommended application At Risk footcare Pt States Last PCP Visit: Date: 4 Examination Category Sub-Category Detail Notes Category Not es Dermatologic SKIN FINDINGS: Skin exam reveal s Keratotic lesion(s) located at, Medial plantar, IPJ, TA, Medial plantar, IPJ, T5, SUB MTH (s), 1, B/L , SUB MTH (s), 2, B/L , SUB MTH (s), 5,B/L, Plantar, Heel(s), B/L , Skin STILL, shows sign(s) of, dryness, scaling, in a [...]
--- OUTSIDE RECORDS SUMMARY | 2025-03-29 08:16 | XMS_ITS | Patient Health Record ---
Author Organization [facility] Rosana gasper TuckerJero Address [address] [facility] [place] [address] Care Team Providers Care Adobe Flex Developer Name Role Phone Zenaida TA, Jesús Huerta Primary Care Provider UnaSemaj Padilla Unavailable [phone] Allergies No Known Allergies Reason For Referral No Information Medications Medication SIG (Take, Route, Frequency, Duration) Notes Start Date End Date Status ENU-GNIM-Xndp-Ca Gluc Not-Taking Ammonium Lactate 12 % 1 application Exte rnally to affected areas of skin to feet except for between the toes Twice a day for 30 days Active Metoprolol Succinate ER 100 MG Oral for 90 Active Lisinopril 10 MG Oral for 90 A ctive Simvastatin Active Baby Aspirin Active Immunizations Vaccine Route Administration Date Status Comme nts COVID-19 Moderna Vaccine Unknown 02/23/2021 Administered Second Dose: 03/16/2021 2nd do Influenza Unknown 08/17/2020 Administered Social History Tobacco Use: Social History Observation [...] Additional Findings: Tobacco non-user Current no nsmoker Problems Problem Type SNOMED Code ICD Code Onset Dates Problem Status W/U Status Risk Notes Problem Atherosclerosis of koi arteries of the extremities ([id number]) Atherosclerosis of koi artery of both lower extremities, with unspecified presence of clinical manifestation (I70.203) Active confirmed Vital Signs Blood pressure diastolic 66 mm Hg 03/09/2025 Height 5ft 8in in 03/09/2025 Blood pressure systolic 132 mm Hg 03/09/2025 Weight 165 lbs 03/09/2025 BMI 25.09 kg/m2 03/09/2025 Procedures Procedure Date Ordered Date Performed Result Body Sit e 29132-DTGFJNW NAIL, 6 OR MORE 04/23/2024 N/A 31742-WQJQ SKIN LESIONS, OVER 4 04/23/2024 N/A 79692-PDMEJSF NAIL, 6 OR MORE 09/06/2024 N/A 04841-LPGO SKIN LESIONS, OVER 4 09/06/2024 N/A 50428-DSRTRFJ NAIL, 6 OR MORE 12/08/2024 N/A 51406-MVQF SKIN LESIONS, OVER 4 12/08/2024 N/A 96167-IQFSMBU NAIL, 6 OR MORE 03/09/2025 N/A 15447-RHPM SKIN LESIONS, OVER 4 03/09/2025 N/A Encounters Encounter Location Date Provider Diagnosis [facility] [address] [place] [address] 04/23/2024 Semaj Cuenca Atherosclerosis of n ative artery of both lower extremities, with unspecified presence of clinical manifestation I70.203 ; Tinea unguium B35.1 ; Pain in right toe(s) M79.674 ; Pain in left toe(s) M79.675 ; Other hammer toe(s) (acquired), right foot M20.41 ; Arthritis of joint of lesser toe, right M19.071 and Subluxation of metatarsophalangeal joint of toe, initial encounter S93.149A [facility] [address] [address] 09/06/2024 Semaj Cuenca Atherosclerosis of n ative artery of both lower extremities, with unspecified presence of clinical manifestation I70.203 ; Tinea unguium B35.1 ; Pain in right toe(s) M79.674 ; Pain in left toe(s) M79.675 and Xerosis of skin L85.3 [facility] [address] [address] 12/08/2024 Semaj Cuenca Atherosclerosis of n ative artery of both lower extremities, with unspecified presence of clinical manifestation I70.203 ; Tinea unguium B35.1 ; Pain in right toe(s) M79.674 ; Pain in left toe(s) M79.675 and Xerosis of skin L85.3 [facility] [address] [address] 03/09/2025 Semaj Cuenca Atherosclerosis of n ative artery of both lower extremities, with unspecified presence of clinical manifestation I70.203 ; Tinea unguium B35.1 ; Pain in right toe(s) M79.674 and Pain in left toe(s) M79.675 [facility] [address] [place] [address] 07/27/2024 Semaj Cuenca Assessments Encounter Date Diagnosis (ICD Code) Assessment Notes Treatment Notes Treatment Clinical Notes Section Notes 04/23/2024 Tinea unguium (ICD-1 0 - B35.1) 04/23/2024 Atherosclerosis of koi artery of both lower extremities, with unspecified presence of clinical manifestation (ICD-10 - I70.203) 09/06/2024 Tinea unguium (ICD-1 0 - B35.1) 09/06/2024 Atherosclerosis of koi artery of both lower extremities, with unspecified presence of clinical manifestation (ICD-10 - I70.203) 12/08/2024 Tinea unguium (ICD-1 0 - B35.1) 12/08/2024 Atherosclerosis of koi artery of both lower extremities, with unspecified presence of clinical manifestation (ICD-10 - I70.203) 03/09/2025 Tinea unguium (ICD-1 0 - B35.1) 03/09/2025 Atherosclerosis of koi artery of both lower extremities, with unspecified presence of clinical manifestation (ICD-10 - I70.203) 03/09/2025 Pain in right toe(s) (ICD-10 - M79.674) 12/08/2024 Pain in right toe(s) (ICD-10 - M79.674) 09/06/2024 Pain in right toe(s) (ICD-10 - M79.674) 04/23/2024 Pain in right toe(s) (ICD-10 - M79.674) 04/23/2024 Pain in left toe(s) (ICD-10 - M79.675) 09/06/2024 Pain in left toe(s) (ICD-10 - M79.675) 12/08/2024 Pain in left toe(s) (ICD-10 - M79.675) 03/09/2025 Pain in left toe(s) (ICD-10 - M79.675) 12/08/2024 Xerosis of skin (ICD -10 - L85.3) 09/06/2024 Xerosis of skin (ICD -10 - L85.3) 04/23/2024 Other hammer toe(s) (acquired), right foot (ICD-10 - M20.41) 04/23/2024 Arthritis of joint o f lesser toe, right (ICD-10 - M19.071) 04/23/2024 Subluxation of metatarsophalangeal joint of toe, initial encounter (ICD-10 - S93.149A) Plan Of Treatment Pending Test Test Name Order Date 37157-QBNRAPM NAIL, 6 OR MORE 01/08/2021 14458-TIUSQWD NAIL, 6 OR MORE 04/09/2021 20139-ECUPWTA NAIL, 6 OR MORE 11/07/2021 98233-QHSIUJW NAIL, 6 OR MORE 02/21/2022 28716-NHBEKDJ NAIL, 6 OR MORE 05/23/2022 10146-RIWBUAS NAIL, 6 OR MORE 04/23/2024 40605-XGPMQBC NAIL, 6 OR MORE 09/06/2024 72717-VJJJUOB NAIL, 6 OR MORE 12/08/2024 57374-IRPQYAT NAIL, 6 OR MORE 03/09/2025 42194-Xpyltlfi Plate 11/07/2021 64048-Iyhogfzk Plate 02/21/2022 96552-Lqezvatt Plate Each Additional 19126- Debride <25 sq cm 11/07/2021 90547- Debride <25 sq cm 04/09/2021 83875-AYQL SKIN LESIONS, OVER 4 02/22/20 65506-OGPR SKIN LESIONS, OVER 4 05/23/20 10120-LJIU SKIN LESIONS, OVER 4 09/06/20 37696-VRWP SKIN LESIONS, OVER 4 04/23/20 24509-SSRO SKIN LESIONS, OVER 4 03/09/20 23874-UWZH SKIN LESIONS, OVER 4 12/08/19 Next Appt Details Provider Name:Semaj Correia Joellen , 06/22/2025 09:00:00 AM, [address] [facility], [address], [place], [address], Insurance Providers Payer Name Payer Address Payer Phone Subscriber Number Group Number Insured Name Patient Relationship to Insured Coverage Start Date Coverage End Date [employer] [place] [employer]vantage [facility] [address] [place] [address] [id number] Vinod Lindsey Self - patient is the insured Medical (General) History Medical History History ICD Code diabetes - NO 6'24 (A1C is normal with w eight loss) high blood pressure macular degeneratin measles mumps chicken pox bladder dystonia-self catheterization transfusions Hypercholesterolemia Surgical History Surgery Date(Month/Year) TURP (transurethral resection of the pro state)
--- NOTE | 2025-03-29 08:23 | ED.DIZZY ---
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 Presents to ED with cousin at the recommendation of the PCP for concerns of recent fall and ongoing decline. Pt fell 3 wks ago at home, states he was bending over to get laundry and fell over, did not seek emergency care or have imaging at that time. Since then, the cousin endorses concerns for increasing declines- he has become incontinent in between catheterizations, has intermittent dizziness more pronounced with positional changes, was walking for an hour daily prior to fall, no longer able to safely walk outside. Endorses difficulty with upper leg movements. PCP recent BP med changes. Does have 1-2 beers daily. Denies fever, N/V/D, recent sick contacts, denies LOC changes, orthopnea, palpitations, CP, SOB, no changes hematuria, or blood in stool. Denies tremors, memory changes, change to hearing, anxiety or depression. MD elicited complaint: dizziness and difficulty walking Onset (ago): week(s) Timing: intermittent and episodic Description: off-balance Context: change in body position History of similar symptoms: No Exacerbating factors: movement/ambulation and change in body position Associated symptoms: denies other symptoms Related Data Home Medications ?Medication ?Instructions ?Recorded ?Confirmed aspirin 81 mg tablet,delayed 81 mg PO DAILY 03/29/25 03/29/25 release metoprolol succinate 50 mg 50 mg PO DAILY 03/29/25 03/29/25 tablet,extended release 24 hr simvastatin 20 mg tablet 20 mg PO BEDTIME 03/29/25 03/29/25 Previous Rx's ?Medication ?Instructions ?Recorded cefuroxime axetil 250 mg tablet 250 mg PO BID #10 tabs 04/01/25 Allergies Allergy/AdvReac Type Severity Reaction Status Date / Time No Known Allergies Allergy Verified 03/29/25 08:04 Review of Systems Review of Systems: Yes all other systems are reviewed and are negative [facility] Social History Social History Alcohol intake: current Alcohol type: beer Smoked in Last 30 Days: Yes Any prior treatment program specific to substance use: No Advance Directives: Yes Advance Directives Information Provided: Yes Advance Directives on File: No Physical Exam Vital Signs: Vital Signs: Last Vital Signs Temp 97.9 F 04/01/25 08:30 Pulse 78 04/01/25 14:29 Resp 16 04/01/25 14:29 BP 134/78 04/01/25 14:29 Pulse Ox 96 04/01/25 14:29 O2 Del Method Room Air 04/01/25 14:29 BMI result Body Mass Index 24.8 Appearance: Alert. Oriented X3. No acute distress. Head: normocephalic, atraumatic. Eyes: Pupils equal, round, wearing glasses, history of macular degeneration ENT: Pharynx normal. No tonsilar swelling or exudate. Neck: Normal inspection. Neck supple. CVS: Normal heart rate and rhythm. Pulses normal. Respiratory: No respiratory distress. Breath sounds normal. Abdomen: Soft and nontender. +BS x4 Skin: Skin warm and dry. Normal skin color. Normal skin turgor. No rashes. Extremities: No lower extremity edema. No joint swelling. Neuro/psych: Oriented X 3. No motor deficit. No sensory deficit. CN II-XII intact. Normal speech and delayed cognition at baseline Course Reevaluation(s) Reevaluation #1: Physician observation started at 10:45. Patient placed in physician observation because patient is awaiting PT evaluation for possible STR vs increased services at home. +UTI, giving dose of rocephin and then plan to start oral antibiotics. not septic. At the time observation was started patient's vital signs were stable. Patient is alert and oriented. Neuro exam is non-focal. CV: RRR and lungs are clear. Will continue to monitor. Time: 10:45 Reevaluation #2: Receiving a call from [facility], a code status has not been ordered, the patient has a only been here once, I can see case management note from the day the patient arrived, they were speaking with a family member, in regard to the healthcare proxy, a form was supposed to be sent to them, I do not see anything uploaded in the system. This is going to have to be determine tomorrow Time: 00:37 Additional Reevaluation(s): Time: 10:12 Date: 03/30/25 Provider: DANAE Pearson Patient in physician observation for case management needs. No acute events reported overnight.? No current issues or complaints. VS stable. Physical therapy evaluated patient yesterday and recommend short-term rehab. Case management working on placement. Will continue to monitor. Time: 17:42 Date: 03/31/25 Provider: DANAE Oliver Patient in physician observation for case management needs. No acute events reported overnight.? He is on ceftin for citrobacter UTI, should be sensitive to this as it is sensitive to ceftriaxone. No current issues or complaints. VS stable. Patient is pending placement to short term rehab however his insurance denies authorization for STR. appeal filed. Will continue to monitor. 04/01/25 08:32 CAITLIN Colbert Patient remains on physician observation, no overnight events reported by nursing. Awaiting placement at short-term rehab pending insurance authorization, case management following for disposition. Vital signs stable. Consultations Consultation #1: Time: 15:42 Date: 04/01/25 Provider: Michaela Stahl NP Physician observation ended at __1542___. Patient has been cleared for discharge to rehab. Patient to be placed at a rehab facility. Medications Administered Generic Name Dose Route Start Last Admin Trade Name Freq PRN Reason Stop Dose Admin Aspirin 81 mg 03/30/25 09:00 04/01/25 08:33 Aspirin Enteric Coated 81 Mg Tablet. PO 81 mg DAILY ROSA Administration Atorvastatin Calcium 10 mg 03/29/25 21:00 03/31/25 20:01 Atorvastatin Calcium 10 Mg Tablet PO 10 mg BEDTIME ROSA Administration Cefuroxime Axetil 250 mg 03/30/25 09:00 04/01/25 08:33 Cefuroxime Axetil 250 Mg Tablet PO 250 mg BID ROSA Administration Metoprolol Succinate 50 mg 03/30/25 09:00 04/01/25 08:32 Metoprolol Succinate Er 50 Mg Tab.Er.24h PO 50 mg DAILY ROSA Administration Protocol Discontinued Medications Generic Name Dose Route Start Last Admin Trade Name Freq PRN Reason Stop Dose Admin Ceftriaxone Sodium 1 gm 03/29/25 10:38 03/29/25 11:02 Ceftriaxone Sodium 1 Gm Vial IVPUSH 03/29/25 10:39 1 gm ONCE ONE Administration Medical Decision Making Medical Decision Making [facility] Narrative: 75 yo male presents with family for concerns of ongoing dizziness, decline in ambulation/gait, incontinence, and self care. Is s/p fall x 3 weeks ago and did not seek emergency care of imaging at that time. Vital signs are stable, ROM intact without limitations, no focal deficits, neurologically intact, recognizable cognitive delay. Orders placed for CT head,comprehensive metabolic panel workup, orthostatic VS, UA w/drug screen, EKG, trops., TSH. No red flags symptoms present such as sudden onset, severe imbalance without vertigo, focal deficits, inability to walk, headache or neck pain, complete loss of b/b, SOB, CP. patient's workup has been unremarkable. Orthostatic vital signs are negative. He was found to have a urinary tract infection and was given a dose of Rocephin. Not septic. patient placed in physician observation for evaluation by Physical therapy and potential for short-term rehab. Family in agreement. Patient seen and evaluated by Physical therapy today who are recommending acute rehab. Will continue treatment for UTI. Differential Diagnosis Differential Diagnoses: The differential diagnosis associated with the presentation includes CVA/TIA, MS, Parkinsonism, cerbellar degeneration, BPPV, menier's disease, orhtostatic hypotension, arrythmia, carotid stenosis,, drug/acohol intoxication, medication side effects, poor vision, muscle weakness, electrolyte abnormality Admission/Observation Consideration of admission/observation: Escalation of care including admission/observation considered Lab Data [facility] Lab Attestation statement: I reviewed the patient's lab results. Mild leukocytosis, mild anemia 03/29/25 08:24 03/29/25 08:24 Labs: Lab Results 03/29/25 03/29/25 03/29/25 Range/Units 08:24 09:29 12:31 WBC 12.5 H (4.8-10.8) X10*3/uL RBC 4.01 L (4.60-5.80) X10*6/uL Hgb 12.8 L (14.0-18.0) g/dl Hct 36.6 L (42.0-52.0) % MCV 91.3 (80.0-98.0) fL MCH 31.9 (27.0-33.0) pg MCHC 35.0 (31.0-36.0) g/dl RDW 13.0 (11.0-16.0) % Plt Count 278 (160-400) X10*3/uL MPV 8.7 L (9.4-12.4) fL Immature Gran % (Auto) 1.4 H (0.0-0.4) % Neut % (Auto) 81.8 H (45-73) % Lymph % (Auto) 8.0 L (20-40) % [place] % (Auto) 7.8 (2-11) % Eos % (Auto) 0.6 (0-4) % Baso % (Auto) 0.4 (0-2) % Lymph # (Auto) 1.0 L (1.2-4.9) X10*3/uL [place] # (Auto) 1.0 (0.1-1.2) X10*3/uL Eos # (Auto) 0.1 (0.0-0.4) X10*3/uL Baso # (Auto) 0.1 (0.0-0.2) X10*3/uL Abs Immat Gran (auto) 0.17 H (0.00-0.03) X10*3/uL Absolute Neuts (auto) 10.2 H (2.0-8.3) x10*3/uL Absolute Nucleated RBC 0.000 (0.0-0.012) X10*3/uL Nucleated RBC % (auto) 0.0 (0.0-0.2) /100WBC Sodium 136 (135-145) mmol/L Potassium 3.8 (3.3-5.1) mmol/L Chloride 104 (96-108) mmol/L Carbon Dioxide 21 L (22-29) mmol/L Anion Gap 15 (12-20) BUN 18 H (9-16) mg/dL Creatinine 0.82 (0.5-1.4) mg/dL Estim Creat Clear Calc 77.6 Estimated GFR > 60 Random Glucose 126 H (60-115) mg/dL Calcium 8.8 (8.4-10.2) mg/dL Magnesium 2.1 (1.6-2.6) mg/dL Total Bilirubin 1.1 H (0.0-1.0) mg/dL Direct Bilirubin 0.4 (0.0-0.5) mg/dL AST 61 H (5-37) U/L ALT 11 (0-40) U/L Alkaline Phosphatase 69 (39-117) U/L Troponin I High Sens < 2.7 (<3.5-35.0) ng/L B-Natriuretic Peptide 10 (<100) pg/mL Total Protein 6.3 L (6.5-8.0) g/dL Albumin 3.9 (3.5-5.0) g/dL TSH 0.59 (0.32-4.0) uIU/mL Urine Color Yellow Urine Appearance Turbid Urine pH 8.0 (5.0-9.0) Ur Specific [place] 1.010 (1.005-1.025) Urine Protein 300 (3+) H (Neg-Trace) mg/dL Urine Glucose (UA) Negative (Negative) mg/dL Urine Ketones Negative (Negative) mg/dL Urine Blood Small (1+) H (Negative) Urine Nitrite Negative (Negative) Ur Leukocyte Esterase Large (3+) H (Negative) Urine RBC 6-10 H (0-2) /HPF Urine WBC >50 H (0-5) /HPF Urine WBC Clumps Present Ur Squamous Epith Cells 0-2 (0-2) /HPF Urine Bacteria 4+ (None Seen) Hyaline Casts 0-2 (0-2) /LPF Urine Opiates Screen Not Detected (Not Detect) Ur Buprenorphine Scrn Not Detected (Not Detect) ng/mL Ur Oxycodone Screen Not Detected (Not Detect) ng/mL Urine Methadone Screen Not Detected (Not Detect) ng/mL Urine Fentanyl Screen Not Detected (Not Detect) Ur Barbiturates Screen Not Detected (Not Detect) Ur Phencyclidine Scrn Not Detected (Not Detect) Ur Amphetamines Screen Not Detected (Not Detect) U Benzodiazepines Scrn Not Detected (Not Detect) Urine Cocaine Screen Not Detected (Not Detect) U Marijuana (THC) Screen Not Detected (Not Detect) Influenza Type A (PCR) NEGATIVE (Negative) Influenza Type B (PCR) NEGATIVE (Negative) RSV RNA Qual (PCR) NEGATIVE (Negative) SARS-CoV-2 RNA (RT-PCR) NEGATIVE (Negative) Independent Interpretation I performed an independent interpretation of an: EKG and CT Scan Interpretation: CT of the head without any acute bleed or edema EKG with normal sinus rhythm, ventricular rate 81 beats per minute, no ST segment elevations or depressions, normal QTc Radiology Impression Discussion of test interpretation with radiology: I have reviewed the radiologist's reading. Independent Historian Clinical information obtained from an independent historian. History obtained from or confirmed by: Other (cousin at the bedside) Prescription Management I considered prescription management with: Antibiotic Chronic Conditions Patient?s care impacted by: Other (urinary retention, BPH, ) Critical Care Time Critical Care Time Critical Care Time: No Discharge Plan Discharge Clinical Impression: Acute UTI Patient Disposition: [facility] Transfer Details: [facility] Rehab Instructions: Urinary Tract Infection in Men (ED) Additional Instructions: He will need to be on cefuroxime 250 mg twice daily for an additional 5 more days Prescriptions: New cefuroxime axetil 250 mg tablet 250 mg PO BID Qty: 10 0RF No Action metoprolol succinate 50 mg tablet extended release 24 hr 50 mg PO DAILY simvastatin 20 mg tablet 20 mg PO BEDTIME aspirin [Aspir-81] 81 mg Tablet,Delayed Release (Dr/Ec) 81 mg PO DAILY Referrals: [facility] [Outside] Print Language: Macedonian
[2025-03-29 08:27] LABS: MANUAL DIFF FLAG NO
[2025-03-29 08:31] LABS: Basophils Absolute Auto 0.1 X10*3/uL (0.0-0.2); Basophils Percent Auto 0.4 % (0-2); Eosinophils Absolute Auto 0.1 X10*3/uL (0.0-0.4); Eosinophils Percent Auto 0.6 % (0-4); Hematocrit 36.6 % (42.0-52.0); Hemoglobin 12.8 g/dl (14.0-18.0); Imm Gran Abs Auto 0.17 X10*3/uL (0.00-0.03); Imm Gran Pct Auto 1.4 % (0.0-0.4); Mean Corpuscular Hemoglobin 31.9 pg (27.0-33.0); Mean Corpuscular Volume 91.3 fL (80.0-98.0); Mean Platelet Volume 8.7 fL (9.4-12.4); Monocytes Percent Auto 7.8 % (2-11); Neutrophils Absolute Auto 10.2 x10*3/uL (2.0-8.3); Neutrophils Percent Auto 81.8 % (45-73); Platelet Count 278 X10*3/uL (160-400); Red Blood Count 4.01 X10*6/uL (4.60-5.80); White Blood Count 12.5 X10*3/uL (4.8-10.8)
[2025-03-29 08:47] LABS: Anion Gap 15 (12-20); Blood Urea Nitrogen 18 mg/dL (9-16); Carbon Dioxide 21 mmol/L (22-29); Chloride 104 mmol/L (96-108); Potassium 3.8 mmol/L (3.3-5.1); Sodium 136 mmol/L (135-145)
[2025-03-29 08:48] LABS: Alanine Aminotransferase 11 U/L (0-40); Albumin Level 3.9 g/dL (3.5-5.0); Aspartate Amino Transferase 61 U/L (5-37); Bilirubin Direct 0.4 mg/dL (0.0-0.5); Bilirubin Total 1.1 mg/dL (0.0-1.0); Calcium 8.8 mg/dL (8.4-10.2); Creatinine Clr Calc Pharmacy 77.6; Estimated Glomerular Filt Rate > 60; Glucose Random 126 mg/dL (60-115); Magnesium 2.1 mg/dL (1.6-2.6); Total Protein 6.3 g/dL (6.5-8.0)
[2025-03-29 08:50] LABS: B Type Natriuretic Peptide 10 pg/mL (<100)
[2025-03-29 09:09] LABS: Troponin-I High Sensitivity < 2.7 ng/L (<3.5-35.0)
[2025-03-29 09:25] LABS: Alkaline Phosphatase 69 U/L (39-117); TSH reflex Free T4 0.59 uIU/mL (0.32-4.0)
[2025-03-29 09:36] LABS: Appearance Urine Turbid; Color Urine Yellow; Glucose Urine UA Negative (Negative); Leukocyte Esterase Urine Large (3+) (Negative); Nitrite Urine Negative (Negative); UMIC TRIGGER UACC YES; Urine Blood Small (1+) (Negative); Urine Ketones Negative (Negative); Urine Protein 300 (3+) mg/dL (Neg-Trace)
[2025-03-29 09:46] LABS: Bacteria Urine 4+ (None Seen); Hyaline Casts Urine 0-2 /LPF (0-2); Squamous Epithelial Cell Urine 0-2 /HPF (0-2); UACC Culture Trigger YES; WBC Clumps Urine Present; WBC Urine >50 /HPF (0-5)
[2025-03-29 09:51] LABS: Amphetamine Screen Urine Not Detected (Not Detect); Barbiturates, Urine Not Detected (Not Detect); Benzodiazepines Screen Urine Not Detected (Not Detect); Buprenorphine Scr Not Detected (Not Detect); Cannabinoid Screen Urine Not Detected (Not Detect); Cocaine Screen Urine Not Detected (Not Detect); Fentanyl, urine Not Detected (Not Detect); Methadone Screen, Urine Not Detected (Not Detect); Opiate Screen Urine Not Detected (Not Detect); Oxycodone Screen Urine Not Detected (Not Detect); Phencyclidine Screen Urine Not Detected (Not Detect)
[2025-03-29] MEDS: cefTRIAXone sodium 1 GM VIAL IVPUSH (11:02)
--- NOTE | 2025-03-29 11:05 | PC.NURSE ---
pt medicated per MAR, plan for PT/CM consults.
[2025-03-29 13:24] LABS: Influenza A PCR NEGATIVE (Negative); Influenza B PCR NEGATIVE (Negative); Resp Syncy Virus RNA Qual PCR NEGATIVE (Negative); SARS COV2 PCR INHOUSE NEGATIVE (Negative)
--- NOTE | 2025-03-29 14:48 | MHC.CM.ED ---
Addendum entered by Radha English 03/29/25 15:40: [facility] does not have a bed. Referral broadcasted within 15 miles of patient's home. [facility], [facility] and [facility] are able to offer a bed. [facility] and [facility] are still reviewing. Spoke with patient and Keila. Choices: 1) [facility] Cast[facility] ) PVR. Original Note: Received case management consult from Reba [facility]. Patient came to the ER due to dizziness. Work up essentially negative. Physical therapy eval completed. Acute rehab is recommended. Referral made to all 3 local acute rehab facilities. No bed offers because acute rehab does not feel [facility] would authorize acute rehab level of care. Met with patient in regards to discharge planing. Patient lives alone, ambulates independently and had no services prior to coming to the hospital. PCP verified. Patient has a HCP and believes his cousin, Keila, has a copy of it. Patient has been to [facility] in the past. Spoke with patient's cousin/HCP, Keila, via telephone at [phone]. Keila verifies she has a copy of patient's HCP and will provide a copy to [facility]. Keila agreeable to referral to [address] [place] [address]. If [address] [place] [address] is unable to offer a bed, referral will be broadcasted locally to all facilities contracted with [facility]. Continue to monitor for d/c needs.
--- NOTE | 2025-03-29 15:49 | PC.NURSE ---
verbal nurse to nurse given to ROBERT melendez in overflow
--- NOTE | 2025-03-29 16:07 | PC.NURSE ---
Assumed care of pt @ 1600 upon arrival to ED overflow. Pt arrived in wheelchair with transport. A&Ox4, requesting to self catheterize at this time. Pt brought to bathroom, independent with catheterization. Pt brought back to bed, offers no complaints at this time. Respirations even and unlabored. Safety precautions in place - bed alarm on, call ibrahim within reach. Plan of care ongoing.
--- NOTE | 2025-03-29 17:15 | PHA.MEDREC ---
Addendum entered by Lacey Anderson RPh 03/29/25 17:20: reviewed by [facility]. Original Note: Pharmacy Consult ? Medication Reconciliation Pharmacy has completed the medication reconciliation. Spoke to patient HCP Keila over the phone to confirm med list. Keila states patient is no longer taking Lisinopril 10 mg. Patient took all his morning medications today.
--- NOTE | 2025-03-29 17:55 | PC.NURSE ---
Pt 1 assist to bedside commode for BM. 2 assist for cleaning and back to bed d/t weakness and shuffled gait.
[2025-03-29] MEDS: Atorvastatin Calcium 10 MG TABLET PO (20:22)
[2025-03-30 05:33] VITALS: BP 133/72; PULSE 77; RESP 16; TEMP 36.8; O2SAT 95
[2025-03-30 07:46] VITALS: BP 127/60; PULSE 81; RESP 18; TEMP 36.5; O2SAT 93
[2025-03-30] MEDS: Aspirin Enteric Coated 81 MG TABLET.DR PO (08:06)
[2025-03-30] MEDS: Metoprolol Succinate ER 50 MG TAB.ER.24H PO (08:06)
[2025-03-30] MEDS: cefuroxime axetiL 250 MG TABLET PO ×2 (08:06→22:03)
--- NOTE | 2025-03-30 11:15 | PC.NURSE ---
Addendum entered by Yohannes Stark RN 03/30/25 18:16: see CM note for more detials on pt d/c plan. d/c was cancelled d/t complications with insurance. pt and family notified. Original Note: report given to facility. copy made of pt's HCP form. family informed of d/c plan. IV removed and belongings with pt and family member
--- NOTE | 2025-03-30 11:48 | MHC.CM.ED ---
Patient remains in ER overflow. [facility] and is in the process of obtaining ins auth. Patient, cousin Keila, and Yohannes JONES aware. Continue to monitor for d/c needs.
[2025-03-30 14:00] VITALS: BP 138/70; PULSE 79; RESP 16; TEMP 36.8; O2SAT 95
--- NOTE | 2025-03-30 16:06 | MHC.CM.ED ---
Received notification from [facility] that [facility] has denied auth for STR. Met with patient and cousin, Keila. Appeal information provided. Patient and Keila filed a speedy appeal. [employer] [place] will have an answer within 72 hours. Continue to monitor for d/c needs.
--- NOTE | 2025-03-30 21:00 | PC.NURSE ---
this rn standby assist while pt self straight cathed. 800cc urine output
[2025-03-30 21:30] VITALS: BP 127/71; PULSE 73; RESP 14; TEMP 36.5; O2SAT 96
[2025-03-30] MEDS: Atorvastatin Calcium 10 MG TABLET PO (22:03)
[2025-03-31 06:30] VITALS: BP 136/75; PULSE 76; RESP 16; TEMP 36.6; O2SAT 95
--- NOTE | 2025-03-31 07:01 | PC.NURSE ---
pt had a large bm in bedside commode. PT self cathed output 650mls. Gait unsteady- standby assist. VSS. plan of care ongoing
[2025-03-31] MEDS: cefuroxime axetiL 250 MG TABLET PO ×2 (08:09→20:02)
[2025-03-31] MEDS: Metoprolol Succinate ER 50 MG TAB.ER.24H PO (08:09)
[2025-03-31] MEDS: Aspirin Enteric Coated 81 MG TABLET.DR PO (08:09)
[2025-03-31 08:50] VITALS: BP 134/64; PULSE 80; RESP 16; TEMP 36.4; O2SAT 96
--- NOTE | 2025-03-31 10:10 | PC.NURSE ---
pt states that he did a straight cath himself at 0545 this morning. he states he does it at 0545, 1245, and 2044.
--- NOTE | 2025-03-31 12:54 | PC.NURSE ---
pt self straight cath with standby assist. 750ml output clear yellow
[2025-03-31 15:42] VITALS: BP 132/72; PULSE 90; RESP 14; TEMP 36.8; O2SAT 94
[2025-03-31] MEDS: Atorvastatin Calcium 10 MG TABLET PO (20:01)
[2025-03-31 23:32] VITALS: BP 139/79; PULSE 80; RESP 16; TEMP 36.7; O2SAT 99
--- NOTE | 2025-04-01 06:14 | PC.NURSE ---
patient slept off and on through out this RN shift. patient rang call ibrahim when time for him to do straight cath. patient ambulated to bathroom with walker. continues to await dispo.
[2025-04-01 06:18] VITALS: BP 122/74; PULSE 80; RESP 16; TEMP 36.6; O2SAT 95
[2025-04-01 08:30] VITALS: BP 120/70; PULSE 102; RESP 13; TEMP 36.6; O2SAT 95
[2025-04-01] MEDS: Metoprolol Succinate ER 50 MG TAB.ER.24H PO (08:32)
[2025-04-01] MEDS: Aspirin Enteric Coated 81 MG TABLET.DR PO (08:33)
[2025-04-01] MEDS: cefuroxime axetiL 250 MG TABLET PO (08:33)
--- NOTE | 2025-04-01 12:05 | MHC.CM.ED ---
Addendum entered by Phyllis Machuca 04/01/25 14:51: Pt and Keila have agreed to private pay at [facility]. A bed is available today and Keila will transport pt to the facility. ED care team aware of plan. Original Note: Pt holding in ED needing STR for PT. [facility] denied SNF placement: family appealed but this was upheld per Leonila at [facility], pts accepting SNF. Leonila will contact pt's HCP, Keila to discuss possible private pay / Medicare B. Discussion w/ED staff notes pt is able to get OOB with assistance and ambulate to the BR with an improved gait. CM to wait for Lenoila's response after discussion of pay options w/Keila.
--- NOTE | 2025-04-01 12:38 | PC.NURSE ---
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 Presents to ED with cousin at the recommendation of the PCP for concerns of recent multiple fallsl and ongoing decline. Patient alert and slow to respond. Lungs clear bilat. Respirations even and non-labored. Abdomen soft, sl distended, non-tender with positive bowel sounds. Positive pedal pulses with no edema. Pending insurance auth for STR placement.
[2025-04-01 14:29] VITALS: BP 134/78; PULSE 78; RESP 16; O2SAT 96
[2025-04-01 15:42] VITALS: BP 134/78; PULSE 78; RESP 16; TEMP 36.7; O2SAT 96
== END 2025-04-01 15:44 | disposition skilled nursing facility (03) ==
PROVIDERS: Physician Assistant; Emergency Provider Emergency Medicine; PCP Internal Medicine
DX: N39.0 Urinary tract infection, site not specified (principal); R42 Dizziness and giddiness; R26.2 Difficulty in walking, not elsewhere classified; Z79.02 Long term (current) use of antithrombotics/antiplatelets; Z79.82 Long term (current) use of aspirin; Z79.899 Other long term (current) drug therapy; Z03.818 Encounter for observation for suspected exposure to other biological agents ruled out
CPT/HCPCS: 0241U; 36415; 70450; 80048; 80076; 80307; 81001; 83735; 83880; 84443; 84484; 85025; 87086; 87088; 87186; 93005; 97161; 99285; J0696

== ENCOUNTER → 2025-03-29 08:06 | Outpatient (BNV) | payer MEDICARE, SELFPAY | PROVIDERS: Emergency Provider Emergency Medicine; PCP Internal Medicine; Visit Provider Internal Medicine Cardiovascular Disease | DX: R42 Dizziness and giddiness (principal) | CPT/HCPCS: 93010 ==

== ENCOUNTER → 2025-03-29 08:06 | Outpatient (BNV) | payer MEDICARE, SELFPAY | PROVIDERS: Emergency Provider Emergency Medicine; PCP Internal Medicine; Visit Provider Radiology Diagnostic Radiology | DX: R42 Dizziness and giddiness (principal); R26.9 Unspecified abnormalities of gait and mobility | CPT/HCPCS: 70450 ==

== ENCOUNTER 2025-08-12 14:08 | Outpatient (AMB) | payer MEDICARE, SELFPAY ==
--- OUTSIDE RECORDS SUMMARY | 2024-07-27 05:00 | XMS_ITS ---
Author Organization [facility] Address [address] [place] [address] Care Team Providers Care Date Night Sitter Name Role Phone Zenaida TA, Jesús Huerta Primary Care Provider Unav ailable Semaj Cuenca Unavailable [phone] Medications Medication SIG (Take, Route, Frequency, Duration) Notes Start Date End Date Status Baby Aspirin Active Simvastatin Active Lisinopril 10 MG Oral; Duration: 90 Active Metoprolol Succinate ER 100 MG Oral; Duration: 90 Active DDD-OZHA-Mlme-Ca Gluc Not-Taking Encounters Encounter Location Date Provider Diagnosis [address] [address] 07/27/2024 Semaj Cuenca Plan Of Treatment Next Appt Details Provider Name:Semaj Cuenca , 10/06/2025 10:00:00 AM, [address] [facility], [address], [address], Progress Notes * Vinod LINDSEYDOB:[birth year] (75 yo M)Acc No.[id number]:07/27/2024 Progress Note Patient: Alondra Vinod LIANG Provider: Kacie Cuenca DPM :1950 A ge:74 Y S ex:Male Date:07/27/2024 Address:[address] [place], [place] [id number] Pcp:Jesús Estevez MD Subjective: * Chief Complaints: * * Medical History: * Medications: T aking Baby Aspirin , Taking Simvastatin , Taking Lisinopril 10 MG Tablet Oral , Taking Metoprolol Succinate ER 100 MG Tablet Extended Release 24 Hour Oral , Not-Taking/PRN LCX-UAUT-Aily-Ca Gluc Objective: * Vitals: Assessment: Plan: * Treatment: * Images: * The named appointment provid er may or may not be the originator of this progress note, and it is not deemed complete until electronically signed by the appointment provider. Sign off status: Pending * Provider: Kacie Cuenca DPM Date: 07/27/2024 Generated for Julienne soto/Veronica/Sidney on: 08/12/2025 03:15 PM EDT
[2025-08-12 14:10] VITALS: BP 128/70; PULSE 75; TEMP 36.6; O2SAT 95; BMI 26.0
--- NOTE | 2025-08-12 14:10 | AM.OFFWIN_ITS ---
Intake Vital Signs 08/12/25 14:10 Height 5 ft 8 in Weight 171 lb BMI 26.0 BP 128/70 Blood Pressure Location Rt brachial Position Sitting Pulse 75 Pulse Source Pulse Oximeter Temp 97.9 F Temp Source Oral Pulse Oximetry (%) 95 Oxygen Delivery Method Room Air Intake Visit Reasons: ep bloody urine Intake Note: pt presents with hematuria that began yesterday evening Allergies No Known Allergies Allergy (Verified 08/12/25 14:14) Do you need a note to return to daycare/school/sports/work: No HPI ep bloody urine HPI Details 75 year old patient with a history of ne urogenic bladder w/ self- catheterizations x 3 daily, presents to the clinic today with report of bloody urine for the past 3 days. This has happened in the past and recently he followed up with [facility] for some testing which he has not received results of yet. His cousin and HCP Keila is with him today. He denies any pain, fevers, chills, or any other complaints. He is not on anticoagulation. No recent falls, trauma, or illnesses. No new medications. He comes in today with a sample of bloody urine, however it is in a plastic tupperware container from home. [facility]LY [facility], [facility] Social History Alcohol intake: current Alcohol type: beer Review of Systems Const All systems reviewed & are unremarkable except as noted in HPI and below Physical Exam Vital Signs: Last Vital Signs Temp 97.9 F 08/12/25 14:10 Pulse 75 08/12/25 14:10 BP 128/70 08/12/25 14:10 Pulse Ox 95 08/12/25 14:10 Oxygen Delivery Method Room Air 08/12/25 14:10 BMI result Body Mass Index 26.0 Const General: cooperative, healthy appearing, comfortable and no acute distress Resp Effort & Inspection: normal respiratory effort Auscultation: clear to auscultation bilaterally Cardio Rate: regular rate Rhythm: regular rhythm General: Yes bladder normal to palpation and Yes no CVA tenderness Back/Spine/Pelvis Back: no CVA tenderness Skin General skin exam: no rashes or lesions noted Extrem General: Yes capillary refill normal and Yes no clubbing, cyanosis or edema Psych Appearance: grossly normal Assessment & Plan Assessment & Plan (1) Hematuria: Code(s): R31.9 - Hematuria, unspecified Qualifiers: Hematuria type: gross Qualified Code(s): R31.0 - Gross hematuria Plan: Patient is unable to provide urine sample at this time. I explained to patient that it is best to have a sterile urine sample container, and sent him home with clean-catch urine kit to return to the lab. UA was ordered and patient states he will likely return with this to the lab tomorrow. He has a f/u with urologist on 08/30. I discussed that perhaps he needs to be seen sooner if this problem continues. He states he has had bloody urine previously and it usually resolves after a few days. Will f/u with patient once UA results are back, and advised patient to return to clinic if he develops any UTI symptoms. Patient and cousin/HCP Keila present at visit verbalize understanding and agreed to plan. Orders: Orders UA w Microscopic Today R31.0 - Gross hematuria Coding Level of Care Code Est Pt Level 4 (57524) Diagnoses Gross hematuria R31.0 Hematuria type: gross
--- OUTSIDE RECORDS SUMMARY | 2025-08-12 15:16 | XMS_ITS | Encounter Summary ---
Author Organization [facility] Address [address] [place] [address] Care Team Providers Care Manager Graphic Name Role Phone Jesús Estevez MD Primary Care Provider [phone] Encounter Details Date Type Department Care Team (Late st Contact Info) Description 04/05/2025 Lab Requisition [facility] - Main Lab [address] [place] [address] Macy Simmons MD [address] [address] Anemia, unspecified; Other disorders of electrolyte and fluid balance, not elsewhere classified Social History Tobacco Use Types Packs/Day Years [...] care for your loved ones. For example, summer child caregiver or elderly care for an older adult? [...] on file documented as of this encounter Plan of Treatment Upcoming Encounters Date Type Department Care Team (Late st Contact Info) Description 09/21/2025 2:45 PM EST Office Visit Adult Medicine [facility] [address] [place] [address] Jesús Estevez MD [address] [place] [address] documented as of this encounter Procedures Procedure Name Priority Date/Time Associated Diagnosis Comments COMPLETE BLOOD COUNT Routine 04/05/2025 6:03 AM EDT Anemia, unspecified Other disorders of electrolyte and fluid balance, not elsewhere classified COMPREHENSIVE METABOLIC PANEL Routine 04/05/2025 6:03 AM EDT Anemia, unspecified Other disorders of electrolyte and fluid balance, not elsewhere classified documented in this encounter Results * (ABNORMAL) Comprehensive metabolic panel (04/05/2025 6:03 AM EDT) Sodium 139 133 - 145 mmol/L LAB CHEMISTRY METHOD 04/05/2025 10:31 AM [facility] Potassium 4.6 3.5 - 5.5 mmol/L LAB CHEMISTRY METHOD 04/05/2025 10:31 AM [facility] Chloride 104 96 - 110 mmol/L LAB CHEMISTRY METHOD 04/05/2025 10:31 AM [facility] CO2 29 21 - 32 mmol/L LAB CHEMISTRY METHOD 04/05/2025 10:31 AM [facility] Anion Gap 6 3 - 11 LAB CHEMISTRY METHOD 04/05/2025 10:31 AM [facility] Glucose 89 70 - 100 mg/dL LAB CHEMISTRY METHOD 04/05/2025 10:31 AM [facility] BUN 11 5 - 25 mg/dL LAB CHEMISTRY METHOD 04/05/2025 10:31 AM [facility] Creatinine 0.80 0.70 - 1.30 mg/dL LAB CHEMISTRY METHOD 04/05/2025 10:31 AM [facility] eGFR 93 >=60 mL/min/1. 73m2 LAB CHEMISTRY METHOD 04/05/2025 10:31 AM [facility] Comment:Calculation based on the Chronic Kidney Disease Epidemiology Collaboration (CKD-EPI) equation refit without adjustment for race. BUN/Creatinine Ratio 13.8 LAB CHEMISTRY METHOD 04/05/2025 10:31 AM [facility] Calcium 8.5 8.5 - 10.5 mg/dL LAB CHEMISTRY METHOD 04/05/2025 10:31 AM [facility] AST (SGOT) 29 10 - 42 unit/L LAB CHEMISTRY METHOD 04/05/2025 10:31 AM [facility] ALT (SGPT) 36 10 - 60 unit/L LAB CHEMISTRY METHOD 04/05/2025 10:31 AM [facility] Alkaline Phosphatase 93 42 - 121 unit/L LAB CHEMISTRY METHOD 04/05/2025 10:31 AM [facility] Total Protein 5.9(L) 6.0 - 8.0 g/dL LAB CHEMISTRY METHOD 04/05/2025 10:31 AM [facility] Albumin 3.2 3.2 - 5.0 g/dL LAB CHEMISTRY METHOD 04/05/2025 10:31 AM [facility] Total Bilirubin 0.5 0.0 - 1.4 mg/dL LAB CHEMISTRY METHOD 04/05/2025 10:31 AM [facility] Blood Venous blood specimen / Unknown Venipuncture / Unknown 04/05/2025 6:03 AM EDT 04/05/2025 8:59 AM EDT us Macy Simmons MD LAB BLOOD ORDERABLES Fin al Result [facility] [address] [place] [address], * (ABNORMAL) Complete blood count (04/05/2025 6:03 AM EDT) WBC 10.1 4.8 - 10.8 K/[facility] LAB HEMETOLOGY METHOD 04/05/2025 9:39 AM EDT [facility] RBC 4.10(L) 4.50 - 5.50 M/mcL LAB HEMETOLOGY METHOD 04/05/2025 9:39 AM [facility] Hemoglobin 12.9(L) 13.5 - 17.5 g/dL LAB HEMETOLOGY METHOD 04/05/2025 9:39 AM [facility] Hematocrit 39.9(L) 42.0 - 54.0 % LAB HEMETOLOGY METHOD 04/05/2025 9:39 AM [facility] MCV 96.8 79.0 - 98.0 FL LAB HEMETOLOGY METHOD 04/05/2025 9:39 AM [facility] MCH 31.3 27.0 - 32.0 pcg LAB HEMETOLOGY METHOD 04/05/2025 9:39 AM [facility] MCHC 32.3 32.0 - 37.0 g/dL LAB HEMETOLOGY METHOD 04/05/2025 9:39 AM [facility] RDW 12.9 11.0 - 15.0 % LAB HEMETOLOGY METHOD 04/05/2025 9:39 AM [facility] Platelets 233 130 - 400 K/mcL LAB HEMETOLOGY METHOD 04/05/2025 9:39 AM [facility] MPV 9.7 7.0 - 11.0 FL LAB HEMETOLOGY METHOD 04/05/2025 9:39 AM [facility] NRBC 0.0 <1.0 % LAB HEMETOLOGY METHOD 04/05/2025 9:39 AM [facility] NRBC Absolute 0.00 <0.10 K/mcL LAB HEMETOLOGY METHOD 04/05/2025 9:39 AM [facility] Blood Venous blood specimen / Unknown Venipuncture / Unknown 04/05/2025 6:03 AM EDT 04/05/2025 8:59 AM EDT Macy Simmons MD LAB BLOOD ORDERABLES Fin al Result [facility] [address] [place] [address], documented in this encounter Visit Diagnoses Diagnosis Anemia, unspecified Other disorders of electrolyte and fluid balance, not elsewhere classified documented in this encounter Additional Health Concerns Assessment Noted Time PHQ-9 Depression Total Score: 0 03/16/20 25 1:14 PM EDT documented as of this encounter Care Teams Manager Graphic Relationship Specialty Start Date End Date Jesús Estevez MD [address] [place] [address] PCP - General 01/05/04 documented as of this encounter
--- OUTSIDE RECORDS SUMMARY | 2025-08-12 15:16 | XMS_ITS | Encounter Summary ---
Author Organization [facility] Address [address] [place] [address] Care Team Providers Care Emergency Response Officer Name Role Phone Jesús Estevez MD Primary Care Provider [phone] Encounter Details Date Type Department Care Team (Late st Contact Info) Description 04/10/[address] [facility] - Main Lab [address] [facility] [place] [place] [address] Macy Simmons MD [address] [address] Anemia, unspecified; Other disorders of electrolyte and [...] for your loved ones. For example, children's zoo caretaker or elderly care for an older adult? [...] 2:45 PM EST Office Visit Adult Medicine [facility] [address] [place] [address] Jesús Estevez MD [address] [place], [place] documented as of this encounter Visit Diagnoses Diagnosis Anemia, unspecified Other disorders of electrolyte and fluid balance, not elsewhere classified documented in this encounter Additional Health Concerns Assessment Noted Time PHQ-9 Depression Total Score: 0 03/16/20 25 1:14 PM EDT documented as of this encounter Care Teams Emergency Response Officer Relationship Specialty Start Date End Date Jesús Estevez MD [address] [place] [address] PCP - General 01/05/04 documented as of this encounter
--- OUTSIDE RECORDS SUMMARY | 2025-08-12 15:16 | XMS_ITS | Patient Health Record ---
Author Organization [facility] Rosana gasper Nogueira Address [address] [place] [address] Care Team Providers Care Statue Maker Name Role Phone Zenaida TA, Jesús Huerta Primary Care Provider Semaj Hewitt Unavailable [phone] Allergies No Known Allergies Results Component Value Reference Range Notes HEMOGLOBIN A1C (GLYCOHEMOGLO BIN) Reviewed date:06/22/2025 09:07:49 AM Interpretation: Performing Lab: Notes/Report: HEMOGLOBIN A1C % (HH) 5.8 Reason For Referral No Information Medications Medication SIG (Take, Route, Frequency, Duration) Notes Start Date End Date Status Baby Aspirin Active Simvastatin Active Lisinopril 10 MG Oral; Duration: 90 Active Metoprolol Succinate ER 100 MG Oral; Duration: 90 Active Ammonium Lactate 12 % 1 application Exte rnally to affected areas of skin to feet except for between the toes Twice a day; Duration: 30 days Active [id number]-Eatd-Ca Gluc Not-Taking Immunizations Vaccine Route Administration Date Status Comme nts Influenza Unknown 08/17/2020 Administered Influenza Unknown 07/19/2024 Administered Pneumococcal Unknown 07/19/2024 Administered COVID-19 Moderna Vaccine Unknown 02/23/2021 Administere d Second Dose: 03/16/2021 2nd do Social History Tobacco Use: Social History Observation Description Date Details (start date - stop date) Never Smoker NA - NA Tobacco use other than smoking: Question Answer Notes Are you an other tobacco user? No Tobacco Control (Standard) Question Answer Notes Tobacco use: Nonsmoker Additional Findings: Tobacco non-user Current no nsmoker AUDIT-C (Standard) Question Answer Notes Did you have a drink contain ing alcohol in the past year? Yes How often did you have a dri nk containing alcohol in the past year? 2 to 3 times a week (3 points) How many drinks did you have on a typical day when you were drinking in the past year? 1 or 2 drinks (0 point) How often did you have six o r more drinks on one occasion in the past year? Never (0 point) Points 3 Interpretation Negative Problems Problem Type SNOMED Code ICD Code Onset Dates Problem Status W/U Status Risk Notes Problem Bilateral atherosclerosis of arteries of lower limbs (disorder) ([id number] ) Atherosclerosis of diomede artery of both lower extremities, with unspecified presence of clinical manifestation (I70.203) Active confirmed Vital Signs Blood pressure diastolic 66 mm Hg 06/22/2025 Height 5ft 8in in 06/22/2025 Blood pressure systolic 132 mm Hg 06/22/2025 Weight 163 lbs 06/22/2025 BMI 24.78 kg/m2 06/22/2025 Procedures Procedure Date Ordered Date Performed Result Body Sit e 77328-MJIYGNF NAIL, 6 OR MORE 09/06/2024 N/A 41397-ZLCK SKIN LESIONS, OVER 4 09/06/2024 N/A 73073-LGMQQYJ NAIL, 6 OR MORE 12/08/2024 N/A 88040-MRNZ SKIN LESIONS, OVER 4 12/08/2024 N/A 51694-TXOLJXO NAIL, 6 OR MORE 03/09/2025 N/A 03426-BXON SKIN LESIONS, OVER 4 03/09/2025 N/A 66262-LUNZMAV NAIL, 6 OR MORE 06/22/2025 N/A 58848-CBEL SKIN LESIONS, OVER 4 06/22/2025 N/A Encounters Encounter Location Date Provider Diagnosis [facility] [address] 09/06/2024 Semaj Cuenca Atherosclerosis of diomede artery of both lower extremities, with unspecified presence of clinical manifestation I70.203 ; Tinea unguium B35.1 ; Pain in right toe(s) M79.674 ; Pain in left toe(s) M79.675 and Xerosis of skin L85.3 [facility] [address] 12/08/2024 Semaj Cuenca Atherosclerosis of diomede artery of both lower extremities, with unspecified presence of clinical manifestation I70.203 ; Tinea unguium B35.1 ; Pain in right toe(s) M79.674 ; Pain in left toe(s) M79.675 and Xerosis of skin L85.[address] [address] 03/09/2025 Semaj Lamasunier Atherosclerosis of diomede artery of both lower extremities, with unspecified presence of clinical manifestation I70.203 ; Tinea unguium B35.1 ; Pain in right toe(s) M79.674 and Pain in left toe(s) M79.[address] [address] 06/22/2025 Semaj Lozoyaier Atherosclerosis of diomede artery of both lower extremities, with unspecified presence of clinical manifestation I70.203 ; Tinea unguium B35.1 ; Pain in right toe(s) M79.674 and Pain in left toe(s) M79.675 Assessments Encounter Date Diagnosis (ICD Code) Assessment Notes Treatment Notes Treatment Clinical Notes Section Notes 09/06/2024 Tinea unguium (ICD-10 - B35.1) 09/06/2024 Atherosclerosis of diomede artery of both lower extremities, with unspecified presence of clinical manifestation (ICD-10 - I70.203) 12/08/2024 Tinea unguium (ICD-10 - B35.1) 12/08/2024 Atherosclerosis of diomede artery of both lower extremities, with unspecified presence of clinical manifestation (ICD-10 - I70.203) 03/09/2025 Tinea unguium (ICD-10 - B35.1) 03/09/2025 Atherosclerosis of diomede artery of both lower extremities, with unspecified presence of clinical manifestation (ICD-10 - I70.203) 06/22/2025 Tinea unguium (ICD-10 - B35.1) 06/22/2025 Atherosclerosis of diomede artery of both lower extremities, with unspecified presence of clinical manifestation (ICD-10 - I70.203) 03/09/2025 Pain in right toe(s) (ICD-10 - M79.674) 06/22/2025 Pain in right toe(s) (ICD-10 - M79.674) 12/08/2024 Pain in right toe(s) (ICD-10 - M79.674) 09/06/2024 Pain in right toe(s) (ICD-10 - M79.674) 09/06/2024 Pain in left toe(s) (ICD-10 - M79.675) 12/08/2024 Pain in left toe(s) (ICD-10 - M79.675) 06/22/2025 Pain in left toe(s) (ICD-10 - M79.675) 03/09/2025 Pain in left toe(s) (ICD-10 - M79.675) 12/08/2024 Xerosis of skin (ICD-10 - L85.3) 09/06/2024 Xerosis of skin (ICD-10 - L85.3) Plan Of Treatment Pending Test Test Name Order Date 88483-FQNRMBV NAIL, 6 OR MORE 01/08/2021 34561-KDVBMCH NAIL, 6 OR MORE 04/09/2021 67017-YHCRMBY NAIL, 6 OR MORE 11/07/2021 23095-BAAONML NAIL, 6 OR MORE 02/21/2022 67174-EIFWJHU NAIL, 6 OR MORE 05/23/2022 60415-EODUVNO NAIL, 6 OR MORE 04/23/2024 75772-FITCVFW NAIL, 6 OR MORE 09/06/2024 92648-CXPYKEI NAIL, 6 OR MORE 12/08/2024 64348-RGABGFH NAIL, 6 OR MORE 03/09/2025 99498-CBELRRU NAIL, 6 OR MORE 06/22/2025 37859-Skzhtovs Plate 11/07/2021 48907-Gzisjjvk Plate 02/21/2022 37405-Pqufkzwh Plate Each Additional 43501- Debride <25 sq cm 11/07/2021 85062- Debride <25 sq cm 04/09/2021 20910-MCSG SKIN LESIONS, OVER 4 02/22/20 49530-GBPL SKIN LESIONS, OVER 4 05/23/20 54199-VAMS SKIN LESIONS, OVER 4 09/06/20 24530-NGGW SKIN LESIONS, OVER 4 06/07/20 24 67889-PGFU SKIN LESIONS, OVER 4 06/22/20 17376-HMNL SKIN LESIONS, OVER 4 03/09/20 92684-BFQG SKIN LESIONS, OVER 12/08/19 Next Appt Details Provider Name:Semaj Cuenca , 10/06/2025 10:00:00 AM, [address] [facility], [address], [place], [address], Insurance Providers Payer Name Payer Address Payer Phone Subscriber Number Group Number Insured Name Patient Relationship to Insured Coverage Start Date Coverage End Date [employer] [place] [employer]vantage [facility] [address] [place] [address] [id number] Vinod Lindsey Self - patient is the insured Medical (General) History Medical History History ICD Code high blood pressure macular degeneratin measles mumps chicken pox bladder dystonia-self catheterization transfusions Hypercholesterolemia Surgical History Surgery Date(Month/Year) TURP (transurethral resection of the pro state)
--- OUTSIDE RECORDS SUMMARY | 2025-08-12 15:16 | XMS_ITS ---
Author Name [facility] Care Team Organization Name Specialty Phone Email Start Date End Da te [facility] Estevez Primary [facility] 09/24/2022 07/05/2024
--- OUTSIDE RECORDS SUMMARY | 2025-08-12 15:16 | XMS_ITS | Clinical Summary ---
Author Organization [address] Address [address] [place] [address] Phone Care Team Providers Care Outsole Cementer Machine Name Role Phone Jesús Estevez MD Primary Care Provider [phone] Allergies No known active allergies Medications aspirin 81 mg EC tablet Take 1 tablet (81 mg total) by mouth 1 (one) time each day. OTC Active metoprolol succinate (TOPROL-XL) 50 mg 24 hr tabletIndicatio ns:Hypotension due to drugs,Fall, initial encounter Take 1 tablet (50 mg total) by mouth 1 (one) time each day. Do not crush or chew. 90 each 1 05/19/2025 Active simvastatin (ZOCOR) 20 mg tabletIndicatio ns:Hypotension due to drugs Take 1 tablet (20 mg total) by mouth at bedtime. 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 Martel Benign prostatic hyperplasia 11/21/2017 Other pulmonary embolism wit hout acute cor pulmonale ([facility] V24, [facility] V28) 10/13/2017 Normocytic anemia 07/30/2017 Ventral hernia 08/26/2008 Macular degeneration (senile) of retina 08/11/20 06 Overview (08/24/2024): Followed by Dr. Nick Funes Obi update Essential hypertension, benign 01/15/2006 Pure hypercholesterolemia 01/15/2006 Encounters Date Type Department Care Team Description 05/19/2025 1:30 PM EDT Office Visit Adult Medicine [address] [address] Jesús Estevez MD Laceration of skin of left eyelid and periocular area, subsequent encounter (Primary Dx); Hypotension due to drugs; Fall, initial encounter; Prediabetes; Atrial fibrillation, unspecified type ([facility] V24, [facility] V28); Neurogenic bladder; History of sepsis; Loss of balance; Patient has healthcare proxy from Last 3 Months Immunizations Name Administration [...] your loved ones. For example, child development professor or elderly care for an older adult? [...] Sign Reading Time Taken Comments Blood Pressure 138/64 05/19/2025 1:28 PM EDT Pulse 78 05/19/2025 1:28 PM EDT Temperature 36 C (96.8 F) 05/19/2025 1:28 PM EDT Respiratory Rate 20 05/19/2025 1:28 PM EDT Oxygen Saturation 95% 03/21/2025 10:44 AM EDT Inhaled Oxygen Concentration - - Weight 72.1 kg (159 lb) 05/19/2025 1:28 PM EDT Height 175.3 cm (5' 9 ) 05/19/2025 1:28 PM EDT Body Mass Index 23.48 05/19/2025 1:28 PM EDT Plan of Treatment Upcoming Encounters Date Type Department Care Team (Late st Contact Info) Description 09/21/2025 2:45 PM EST Office Visit Adult Medicine [facility] [address] [place] [address] Jesús Estevez MD [address] [place] [address] Health Maintenance Due Date Last Done Comments Zoster Vaccines (2 of 2) 03/11/2022 01/14/2022 COVID-19 Vaccine ( season) 2025 08/10/2024, 08/12/2023, 09/17/2022, Additional history exists Influenza Vaccine (#1) 2025 , 08/12/2023, 09/10/2022, Additional history exists Social Influencers of Health Screening 03/16/2026 03/16/2025 Falls Risk Assessment 03/21/2026 03/21/2025 Medicare Annual Wellness Visit 03/21/2026 03/21/2025 Hypertension/CHF/CAD Annual BMP Blood Test 04/05/2026 04/05/2025, 03/24/2025, 03/09/2024 Cholesterol Screening (Lipid Panel) 03/24/2030 03/24/2025, 03/09/2024 DTaP,Tdap,and Td Vaccines (5 - Td or Tdap) 12/26/2032 12/26/2022, 12/29/2021, 10/12/2012, Additional history exists Hepatitis C Screening Completed 10/15/2014 Colorectal Cancer Screening: Colonoscopy Discontinued 03/16/2015 Pneumococcal Vaccine: 50+ Years Completed 12/26/2022, 09/17/2017, 09/10/2010 RSV Immunization Adult Patients Completed 08/17/2024 Depression Screening Completed 03/16/2025 HIB Vaccines Aged Out No longer eligi [...] Procedure Name Priority Date/Time Associated Diagnosis Comments COMPREHENSIVE METABOLIC PANEL Routine 04/05/2025 6:03 AM EDT Anemia, unspecified Other disorders of electrolyte and fluid balance, not elsewhere classified LIPID PANEL WITH REFLEX TO DIRECT LDL Routine 03/24/2025 8:11 AM EDT Routine general medical examination at a health care facility Hypotension due to drugs Encounter for screening for cardiovascular disorders COLONOSCOPY Routine 03/16/2015 HEPATITIS C SCREENING Routine 10/15/2014 from Last 3 Months or Most Recently Relevant to Health Maintenance Results * (ABNORMAL) Comprehensive metabolic panel (04/05/2025 6:03 AM EDT) Sodium 139 133 - 145 mmol/L LAB CHEMISTRY METHOD 04/05/2025 10:31 AM [facility] Potassium 4.6 3.5 - 5.5 mmol/L LAB CHEMISTRY METHOD 04/05/2025 10:31 AM [facility] Chloride 104 96 - 110 mmol/L LAB CHEMISTRY METHOD 04/05/2025 10:31 AM [facility] CO2 29 21 - 32 mmol/L LAB CHEMISTRY METHOD 04/05/2025 10:31 AM [facility] Anion Gap 6 3 - 11 LAB CHEMISTRY METHOD 04/05/2025 10:31 AM [facility] Glucose 89 70 - 100 mg/dL LAB CHEMISTRY METHOD 04/05/2025 10:31 AM [facility] BUN 11 5 - 25 mg/dL LAB CHEMISTRY METHOD 04/05/2025 10:31 AM [facility] Creatinine 0.80 0.70 - 1.30 mg/dL LAB CHEMISTRY METHOD 04/05/2025 10:31 AM [facility] eGFR 93 >=60 mL/min/1. 73m2 LAB CHEMISTRY METHOD 04/05/2025 10:31 AM [facility] Comment:Calculation based on the Chronic Kidney Disease Epidemiology Collaboration (CKD-EPI) equation refit without adjustment for race. BUN/Creatinine Ratio 13.8 LAB CHEMISTRY METHOD 04/05/2025 10:31 AM [facility] Calcium 8.5 8.5 - 10.5 mg/dL LAB CHEMISTRY METHOD 04/05/2025 10:31 AM [facility] AST (SGOT) 29 10 - 42 unit/L LAB CHEMISTRY METHOD 04/05/2025 10:31 AM [facility] ALT (SGPT) 36 10 - 60 unit/L LAB CHEMISTRY METHOD 04/05/2025 10:31 AM [facility] Alkaline Phosphatase 93 42 - 121 unit/L LAB CHEMISTRY METHOD 04/05/2025 10:31 AM [facility] Total Protein 5.9(L) 6.0 - 8.0 g/dL LAB CHEMISTRY METHOD 04/05/2025 10:31 AM [facility] Albumin 3.2 3.2 - 5.0 g/dL LAB CHEMISTRY METHOD 04/05/2025 10:31 AM [facility] Total Bilirubin 0.5 0.0 - 1.4 mg/dL LAB CHEMISTRY METHOD 04/05/2025 10:31 AM [facility] Blood Venous blood specimen / Unknown Venipuncture / Unknown 04/05/2025 6:03 AM EDT 04/05/2025 8:59 AM EDT us Macy Simmons MD LAB BLOOD ORDERABLES Fin al Result [facility] [address] [place] [address], [place] [phone] * Lipid panel with reflex to direct LDL (03/24/2025 8:11 AM EDT) [facility] Signature Cholesterol 151 0 - 200 mg/dL LAB [...] 4.4 LAB CHEMISTRY METHOD 03/24/2025 11:12 AM T [facility] Blood Venous blood specimen / Unknown Venipuncture / Unknown 03/24/2025 8:11 AM EDT 03/24/2025 8:11 AM EDT us Nay Pruitt NP LAB BLOOD ORDERABLES Final R esult [facility] [address] [place] [address], [place] [phone] * Colonoscopy (03/16/2015) Colonoscopy No interpretation , abstracted Anatomical Region Laterality Modality Other Historical Provider HEALTH MAINTENANCE Final Result * Hepatitis C Screening (10/15/2014) Hepatitis C Screening Abstracted Historical Provider HEALTH MAINTENANCE Final Result from Last 3 Months or Most Recently Relevant to Health Maintenance Insurance [employer] [place] [employer] Care Teams Outsole Cementer Machine Relationship Specialty Start Date End Date Jesús Estevez MD [address] [place] [id number] PCP - General 01/05/04
== END 2025-08-12 14:46 | disposition home or self-care (01) ==
PROVIDERS: PCP Internal Medicine; Visit Provider Nurse Practitioner Family
DX: R31.0 Gross hematuria (principal)

== ENCOUNTER → 2025-08-12 14:08 | Outpatient (BNVA) | payer MEDICARE, SELFPAY | PROVIDERS: PCP Internal Medicine; Visit Provider Nurse Practitioner Family | DX: R31.0 Gross hematuria (principal) | CPT/HCPCS: 99212 ==

== ENCOUNTER 2025-08-13 11:40 | Outpatient (REF) | payer MEDICARE, SELFPAY ==
--- OUTSIDE RECORDS SUMMARY | 2024-07-27 05:00 | XMS_ITS ---
Author Organization [facility] Address [address] [place] [address] Care Team Providers Care Child Center Assistant Name Role Phone Zenaida TA, Jesús Huerta Primary Care Provider Unav ailable Semaj Cuenca Unavailable [phone] Medications Medication SIG (Take, Route, Frequency, Duration) Notes Start Date End Date Status Baby Aspirin Active Simvastatin Active Lisinopril 10 MG Oral; Duration: 90 Active Metoprolol Succinate ER 100 MG Oral; Duration: 90 Active YKI-XAOX-Auwr-Ca Gluc Not-Taking Encounters Encounter Location Date Provider Diagnosis [address] [address] 07/27/2024 Semaj Cuenca Plan Of Treatment Next Appt Details Provider Name:Semaj Cuenca , 10/06/2025 10:00:00 AM, [address] [facility], [address], [address], Progress Notes * Vinod LINDSEYDOB:[birth year] (75 yo M)Acc No.[id number]:07/27/2024 Progress Note Patient: Alondra Vinod LIANG Provider: Kacie Cuenca DPM :1950 A ge:74 Y S ex:Male Date:07/27/2024 Address:[address] [place], [place] [id number] Pcp:Jesús Estevez MD Subjective: * Chief Complaints: * * Medical History: * Medications: T aking Baby Aspirin , Taking Simvastatin , Taking Lisinopril 10 MG Tablet Oral , Taking Metoprolol Succinate ER 100 MG Tablet Extended Release 24 Hour Oral , Not-Taking/PRN SFM-DVMP-Dudv-Ca Gluc Objective: * Vitals: Assessment: Plan: * Treatment: * Images: * The named appointment provid er may or may not be the originator of this progress note, and it is not deemed complete until electronically signed by the appointment provider. Sign off status: Pending * Provider: Kacie Cuenca DPM Date: 07/27/2024 Generated for Julienne soto/Veronica/Sidney on: 08/13/2025 12:22 PM EDT
--- OUTSIDE RECORDS SUMMARY | 2025-08-13 12:23 | XMS_ITS | Encounter Summary ---
Author Organization [facility] Address [address] [place] [address] Care Team Providers Care Chef Kitchen Manager Name Role Phone Jesús Estevez MD Primary Care Provider [phone] Encounter Details Date Type Department Care Team (Late st Contact Info) Description 04/10/2025 Lab Requisition [facility] Lab [address] [facility] [place] [address] Macy Simmons MD [address] [address] Anemia, unspecified; Other disorders of electrolyte and [...] for your loved ones. For example, child caregiver private home or elderly care for an older adult? [...] 2:45 PM EST Office Visit Adult Medicine [facility] [address] [place] [address] Jesús Estevez MD [address] [place], [place] documented as of this encounter Visit Diagnoses Diagnosis Anemia, unspecified Other disorders of electrolyte and fluid balance, not elsewhere classified documented in this encounter Additional Health Concerns Assessment Noted Time PHQ-9 Depression Total Score: 0 03/16/20 25 1:14 PM EDT documented as of this encounter Care Teams Chef Kitchen Manager Relationship Specialty Start Date End Date Jesús Estevez MD [address] [place] [address] PCP - General 01/05/04 documented as of this encounter
--- OUTSIDE RECORDS SUMMARY | 2025-08-13 12:23 | XMS_ITS | Clinical Summary ---
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 Martel Benign prostatic hyperplasia 11/21/2017 Other pulmonary embolism wit hout acute cor pulmonale ([facility] V24, [facility] V28) 10/13/2017 Normocytic anemia 07/30/2017 Ventral hernia 08/26/2008 Macular degeneration (senile) of retina 08/11/20 06 Overview (08/24/2024): Followed by Dr. Nick Funes Obi update Essential hypertension, benign 01/15/2006 Pure hypercholesterolemia 01/15/2006 Encounters Date Type Department Care Team Description 05/19/2025 1:30 PM EDT Office Visit Adult Medicine [address] [address] Jesús Estevez MD Laceration of skin of left eyelid and periocular area, subsequent encounter (Primary Dx); Hypotension due to drugs; Fall, initial encounter; Prediabetes; Atrial fibrillation, unspecified type ([facility] V24, [facility] V28); Neurogenic bladder; History of sepsis; Loss [...] care for your loved ones. For example, early childhood coordinator or elderly care for an older adult? [...] 2:45 PM EST Office Visit Adult Medicine [facility] [address] [place] [address] Jesús Estevez MD [address] [place] [address] Health Maintenance Due Date Last Done Comments [...] MD LAB BLOOD ORDERABLES Fin al Result [facility] [address] [place] [address], [place] [phone] * Lipid panel with reflex to direct LDL (03/24/2025 8:11 AM EDT) [facility] Signature Cholesterol 151 0 - 200 mg/dL LAB CHEMISTRY METHOD 03/24/2025 11:12 AM EDT [facility] Triglycerides 110 0 - 150 mg/dL LAB CHEMISTRY METHOD 03/24/2025 11:12 AM EDT [facility] HDL 53 >=40 mg/dL LAB CHEMISTRY METHOD 03/24/2025 11:12 AM EDT [facility] LDL Calculated 76 0 - 100 mg/dL LAB CHEMISTRY METHOD 03/24/2025 11:12 AM EDT [facility] VLDL Cholesterol Thang 22 mg/dL LAB CHEMISTRY METHOD 03/24/2025 11:12 AM EDT [facility] Non HDL Chol. (LDL+VLDL) 98 <145 mg/dL LAB CHEMISTRY METHOD 03/24/2025 11:12 AM EDT [facility] Chol/HDL Ratio 2.8 0.0 - 4.4 LAB CHEMISTRY METHOD 03/24/2025 11:12 AM T [facility] Blood Venous blood specimen / Unknown Venipuncture / Unknown 03/24/2025 8:11 AM EDT 03/24/2025 8:11 AM EDT us Nay Pruitt NP LAB BLOOD ORDERABLES Final R esult [facility] [address] [place] [address], [place] [phone] * Colonoscopy (03/16/2015) Colonoscopy No interpretation , abstracted Anatomical Region Laterality Modality Other Historical Provider HEALTH MAINTENANCE Final Result * Hepatitis C Screening (10/15/2014) Hepatitis C Screening Abstracted Historical Provider HEALTH MAINTENANCE Final Result from Last 3 Months or Most Recently Relevant to Health Maintenance Insurance [employer] [employer] Care Teams Manager Bench Relationship Specialty Start Date End Date Jesús Estevez MD [address] [place] [phone] PCP - General 01/05/04
--- OUTSIDE RECORDS SUMMARY | 2025-08-13 12:23 | XMS_ITS | Patient Health Record ---
Author Organization [facility] Rosana gasper Nogueira Address [address] [place] [address] Care Team Providers Care Manager Intranet Name Role Phone Zenaida TA, Jesús Huerta Primary Care Provider Semaj Hewitt Unavailable [phone] Allergies No Known Allergies Results Component Value [...] Twice a day; Duration: 30 days Active AFW-AMUP-Hddt-Ca Gluc Not-Taking Immunizations Vaccine Route Administration Date [...] atherosclerosis of arteries of lower limbs (disorder) ([id number] ) Atherosclerosis of [place] artery of both lower extremities, with unspecified presence of clinical manifestation (I70.203) Active confirmed Vital Signs Blood pressure diastolic 66 mm Hg 06/22/2025 Height 5ft 8in in 06/22/2025 Blood pressure systolic 132 mm Hg 06/22/2025 Weight 163 lbs 06/22/2025 BMI 24.78 kg/m2 06/22/2025 Procedures Procedure Date Ordered Date Performed Result Body Sit e 13192-SYABGBR NAIL, 6 OR MORE 09/06/2024 N/A 99404-YSQQ SKIN LESIONS, OVER 4 09/06/2024 N/A 93504-HBPWFHE NAIL, 6 OR MORE 12/08/2024 N/A 93894-RDGI SKIN LESIONS, OVER 4 12/08/2024 N/A 68339-EDGHUIK NAIL, 6 OR MORE 03/09/2025 N/A 89899-AADE SKIN LESIONS, OVER 4 03/09/2025 N/A 22225-HVCVRYH NAIL, 6 OR MORE 06/22/2025 N/A 99677-XVFI SKIN LESIONS, OVER 4 06/22/2025 N/A Encounters Encounter Location Date Provider Diagnosis [facility] [address] 09/06/2024 Semaj Cuenca Atherosclerosis of [place] artery of both lower extremities, with unspecified presence of clinical manifestation I70.203 ; Tinea unguium B35.1 ; Pain in right toe(s) M79.674 ; Pain in left toe(s) M79.675 and Xerosis of skin L85.3 [facility] [address] 12/08/2024 Semaj Cuenca Atherosclerosis of [place] artery of both lower extremities, with unspecified presence of clinical manifestation I70.203 ; Tinea unguium B35.1 ; Pain in right toe(s) M79.674 ; Pain in left toe(s) M79.675 and Xerosis of skin L85.[address] [address] 03/09/2025 Semaj Lamasunier Atherosclerosis of [place] artery of both lower extremities, with unspecified presence of clinical manifestation I70.203 ; Tinea unguium B35.1 ; Pain in right toe(s) M79.674 and Pain in left toe(s) M79.[address] [address] 06/22/2025 Semaj Lozoyaier Atherosclerosis of [place] artery of both lower extremities, with unspecified presence of clinical manifestation I70.203 ; Tinea unguium B35.1 ; Pain in right toe(s) M79.674 and Pain in left toe(s) M79.675 Assessments Encounter Date Diagnosis (ICD Code) Assessment Notes Treatment Notes Treatment Clinical Notes Section Notes 09/06/2024 Tinea unguium (ICD-10 - B35.1) 09/06/2024 Atherosclerosis of [place] artery of both lower extremities, with unspecified presence of clinical manifestation (ICD-10 - I70.203) 12/08/2024 Tinea unguium (ICD-10 - B35.1) 12/08/2024 Atherosclerosis of [place] artery of both lower extremities, with unspecified presence of clinical manifestation (ICD-10 - I70.203) 03/09/2025 Tinea unguium (ICD-10 - B35.1) 03/09/2025 Atherosclerosis of [place] artery of both lower extremities, with unspecified presence of clinical manifestation (ICD-10 - I70.203) 06/22/2025 Tinea unguium (ICD-10 - B35.1) 06/22/2025 Atherosclerosis of [place] artery of both lower extremities, with unspecified [...] Treatment Pending Test Test Name Order Date 88683-EVMNGNK NAIL, 6 OR MORE 01/08/2021 33435-VCSYKAI NAIL, 6 OR MORE 04/09/2021 99874-QDYILIG NAIL, 6 OR MORE 11/07/2021 48112-MEDPHVZ NAIL, 6 OR MORE 02/21/2022 22915-VJRZCOH NAIL, 6 OR MORE 05/23/2022 32505-ABLZPSD NAIL, 6 OR MORE 04/23/2024 55516-RVRMDWF NAIL, 6 OR MORE 09/06/2024 27262-SEVUJFA NAIL, 6 OR MORE 12/08/2024 80653-ZMGAPZM NAIL, 6 OR MORE 03/09/2025 43487-KWZGARO NAIL, 6 OR MORE 06/22/2025 77266-Muznalop Plate 11/07/2021 03938-Ogowrvxx Plate 02/21/2022 39486-Heepoqbs Plate Each Additional 57109- Debride <25 sq cm 11/07/2021 50581- Debride <25 sq cm 04/09/2021 38021-SJON SKIN LESIONS, OVER 4 02/22/20 71376-EDDY SKIN LESIONS, OVER 4 05/23/20 91237-WOPF SKIN LESIONS, OVER 4 09/06/20 42750-WFEL SKIN LESIONS, OVER 4 06/07/20 24 30362-NXBK SKIN LESIONS, OVER 4 06/22/20 74109-VCOG SKIN LESIONS, OVER 4 03/09/20 08820-WLHL SKIN LESIONS, OVER 12/08/19 Next Appt Details Provider Name:Semaj Cuenca , 10/06/2025 10:00:00 AM, [address] [facility], [address], [place], [address], Insurance Providers Payer Name Payer Address Payer Phone Subscriber Number Group Number Insured Name Patient Relationship to Insured Coverage Start Date Coverage End Date [employer] [place] [employer] [facility] [address] [place] [address] [id number] Vinod Lindsey Self - patient is the insured Medical (General) History Medical History History ICD Code high blood pressure macular degeneratin measles mumps chicken pox bladder dystonia-self catheterization transfusions Hypercholesterolemia Surgical History Surgery Date(Month/Year) TURP (transurethral resection of the pro state)
--- OUTSIDE RECORDS SUMMARY | 2025-08-13 12:23 | XMS_ITS | Encounter Summary ---
Author Organization [facility] Address [address] [place] [address] Care Team Providers Care Community Outreach Specialist Name Role Phone Jesús Estevez MD Primary Care Provider [phone] Encounter Details Date Type Department Care Team (Late st Contact Info) Description 04/05/2025 Lab Requisition [facility] - Main Lab [address] [facility] [place] [address] Macy Simmons MD [address] [address] Anemia, unspecified; Other disorders of electrolyte and [...] your loved ones. For example, early childhood education instructor or elderly care for an older adult? [...] 2:45 PM EST Office Visit Adult Medicine [facility] [place] [place] [address] [place] [address] Jesús Estevez MD [address] [place] [address] documented as of this encounter Procedures Procedure [...] mmol/L LAB CHEMISTRY METHOD 04/05/2025 10:31 AM [facility] Potassium 4.6 3.5 - 5.5 mmol/L LAB CHEMISTRY METHOD 04/05/2025 10:31 AM [facility] Chloride 104 96 - 110 mmol/L LAB CHEMISTRY METHOD 04/05/2025 10:31 AM [facility] CO2 29 21 - 32 mmol/L LAB CHEMISTRY METHOD 04/05/2025 10:31 AM [facility] Anion Gap 6 3 - 11 LAB CHEMISTRY METHOD 04/05/2025 10:31 AM [facility] Glucose 89 70 - 100 mg/dL LAB CHEMISTRY METHOD 04/05/2025 10:31 AM [facility] BUN 11 5 - 25 mg/dL LAB CHEMISTRY METHOD 04/05/2025 10:31 AM [facility] Creatinine 0.80 0.70 - 1.30 mg/dL LAB CHEMISTRY METHOD 04/05/2025 10:31 AM [facility] eGFR 93 >=60 mL/min/1. 73m2 LAB CHEMISTRY METHOD 04/05/2025 10:31 AM [facility] Comment:Calculation based on the Chronic Kidney Disease Epidemiology Collaboration (CKD-EPI) equation refit without adjustment for race. BUN/Creatinine Ratio 13.8 LAB CHEMISTRY METHOD 04/05/2025 10:31 AM [facility] Calcium 8.5 8.5 - 10.5 mg/dL LAB CHEMISTRY METHOD 04/05/2025 10:31 AM [facility] AST (SGOT) 29 10 - 42 unit/L LAB CHEMISTRY METHOD 04/05/2025 10:31 AM [facility] ALT (SGPT) 36 10 - 60 unit/L LAB CHEMISTRY METHOD 04/05/2025 10:31 AM [facility] Alkaline Phosphatase 93 42 - 121 unit/L LAB CHEMISTRY METHOD 04/05/2025 10:31 AM [facility] Total Protein 5.9(L) 6.0 - 8.0 g/dL LAB CHEMISTRY METHOD 04/05/2025 10:31 AM [facility] Albumin 3.2 3.2 - 5.0 g/dL LAB CHEMISTRY METHOD 04/05/2025 10:31 AM [facility] Total Bilirubin 0.5 0.0 - 1.4 mg/dL LAB CHEMISTRY METHOD 04/05/2025 10:31 AM [facility] Blood Venous blood specimen / Unknown Venipuncture / Unknown 04/05/2025 6:03 AM EDT 04/05/2025 8:59 AM EDT us Macy Simmons MD LAB BLOOD ORDERABLES Fin al Result [facility] [address] [place] [address], * (ABNORMAL) Complete blood count (04/05/2025 6:03 AM EDT) WBC 10.1 4.8 - 10.8 K/[facility] LAB HEMETOLOGY METHOD 04/05/2025 9:[address] [facility] RBC 4.10(L) 4.50 - 5.50 M/mcL LAB HEMETOLOGY METHOD 04/05/2025 9:39 AM [facility] Hemoglobin 12.9(L) 13.5 - 17.5 g/dL LAB HEMETOLOGY METHOD 04/05/2025 9:39 AM [facility] Hematocrit 39.9(L) 42.0 - 54.0 % LAB HEMETOLOGY METHOD 04/05/2025 9:39 AM [facility] MCV 96.8 79.0 - 98.0 FL LAB HEMETOLOGY METHOD 04/05/2025 9:39 AM [facility] MCH 31.3 27.0 - 32.0 pcg LAB HEMETOLOGY METHOD 04/05/2025 9:39 AM [facility] MCHC 32.3 32.0 - 37.0 g/dL LAB HEMETOLOGY METHOD 04/05/2025 9:39 AM [facility] RDW 12.9 11.0 - 15.0 % LAB HEMETOLOGY METHOD 04/05/2025 9:39 AM [facility] Platelets 233 130 - 400 K/mcL LAB HEMETOLOGY METHOD 04/05/2025 9:39 AM [facility] MPV 9.7 7.0 - 11.0 FL LAB HEMETOLOGY METHOD 04/05/2025 9:39 AM [facility] NRBC 0.0 <1.0 % LAB HEMETOLOGY METHOD 04/05/2025 9:39 AM [facility] NRBC Absolute 0.00 <0.10 K/mcL LAB HEMETOLOGY METHOD 04/05/2025 9:39 AM [facility] Blood Venous blood specimen / Unknown Venipuncture / Unknown 04/05/2025 6:03 AM EDT 04/05/2025 8:59 AM EDT Macy Simmons MD LAB BLOOD ORDERABLES Fin al Result [facility] [address] [place] [address], documented in this encounter Visit Diagnoses Diagnosis Anemia, unspecified Other disorders of electrolyte and fluid balance, not elsewhere classified documented in this encounter Additional Health Concerns Assessment Noted Time PHQ-9 Depression Total Score: 0 03/16/20 25 1:14 PM EDT documented as of this encounter Care Teams Community Outreach Specialist Relationship Specialty Start Date End Date Jesús Estevez MD [address] [place] [address] PCP - General 01/05/04 documented as of this encounter
[2025-08-13 13:47] LABS: Appearance Urine Hazy; Glucose Urine UA Negative (Negative); PH 6.5 (5.0-9.0); Specific Gravity - Urine 1.010 (1.005-1.025)
[2025-08-13 13:48] LABS: UMIC TRIGGER UA YES
== END 2025-08-13 11:41 | disposition home or self-care (01) ==
LOC: HO.HMGCLNP 11:40
PROVIDERS: PCP Internal Medicine; Visit Provider Nurse Practitioner Family
DX: R31.0 Gross hematuria (principal)
CPT/HCPCS: 81001